=== PATIENT | male | born 1955 | race Caucasian/White ===

== ENCOUNTER 2017-01-13 11:31 | Emergency (ER) | payer MEDICARE, MEDICAID ==
[~2017-01-13] VITALS: Ht 188 cm; Wt 86.2 kg
--- OUTSIDE RECORDS SUMMARY | 2017-01-13 11:55 | External Medical Summary Rpt | CCD ---
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 PNEUMAT NEBULIZR DISPBL ADMN SET A7003 MED 4 MED 4 SM VOL 3 HOME INC HOME INC NONFILTR PNEUMAT NEBULIZR DISPBL ALBUTEROL J7620 MED 4 MED 4 TO 2.5 3 HOME INC HOME INC MG & IPRATROPI UM BROM TO 0.5 MG ALBUTEROL J7620 MED 4 MED 4 TO 2.5 3 HOME INC HOME INC MG & IPRATROPI UM BROM TO 0.5 MG ALBUTEROL J7620 MED 4 MED 4 TO 2.5 3 HOME INC HOME INC MG & IPRATROPI UM BROM TO 0.5 MG ALBUTEROL J7620 MED 4 MED 4 TO 2.5 3 HOME INC HOME INC MG & IPRATROPI UM BROM TO 0.5 MG NEBULIZER E0570 MED 4 MED 4 WITH 3 HOME INC HOME INC COMPRESSO R APPL 94845 EHN JANEE EHN JANEE MODALITY 3 1/> AREAS ELEC STIMJ UNATTENDE D APPL 62375 EHN JANEE EHN JANEE MODALITY 3 1/> 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 THERAPEUT 92209 EHN JANEE EHN JANEE IC PX 1/> 3 AREAS EACH 15 MIN EXERCISES CHIROPRAC 76131 EHN JANEE EHN JANEE TIC 3 MANIPULAT [facility] [place] SPINAL 3-4 REGIONS MANUAL 38954 EHN JANEE EHN JANEE THERAPY 3 TQS 1/> REGIONS EACH 15 MINUTES MANUAL 37240 EHN JANEE EHN JANEE THERAPY 3 TQS 1/> REGIONS EACH 15 MINUTES CHIROPRAC 59398 EHN JANEE EHN JANEE TIC 3 MANIPULAT [facility] SPINAL 3-4 REGIONS THERAPEUT 61064 EHN JANEE EHN JANEE IC PX 1/> 3 AREAS EACH 15 MIN EXERCISES APPL 80243 EHN JANEE EHN JANEE MODALITY 3 1/> 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 APPL 75246 EHN JANEE EHN JANEE MODALITY 3 1/> AREAS ELEC STIMJ UNATTENDE D APPL 35099 EHN JANEE EHN JANEE MODALITY 3 1/> AREAS ELEC STIMJ UNATTENDE D APPL 51354 EHN JANEE EHN JANEE MODALITY 3 1/> 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 CHIROPRAC 75162 EHN JANEE EHN JANEE TIC 3 MANIPULAT [facility] [place] SPINAL 3-4 REGIONS THERAPEUT 11462 EHN JANEE EHN JANEE IC PX 1/> 3 AREAS EACH 15 MIN EXERCISES MANUAL 73090 EHN JANEE EHN JANEE THERAPY 3 TQS 1/> REGIONS EACH 15 MINUTES MANUAL 93181 EHN JANEE EHN JANEE THERAPY 3 TQS 1/> REGIONS EACH 15 MINUTES CHIROPRAC 43088 EHN JANEE EHN JANEE TIC 3 MANIPULAT [facility] [place] SPINAL 3-4 REGIONS THERAPEUT 89166 EHN JANEE EHN JANEE IC PX 1/> 3 AREAS EACH 15 MIN EXERCISES APPL 40996 EHN JANEE EHN JANEE MODALITY 3 1/> AREAS ELEC STIMJ UNATTENDE D APPL 80010 EHN JANEE EHN JANEE MODALITY 3 1/> 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 APPL 96091 EHN JANEE EHN JANEE MODALITY 3 1/> 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 APPL 34964 EHN JANEE EHN JANEE MODALITY 3 1/> AREAS ELEC STIMJ UNATTENDE D MANUAL 71466 EHN JANEE EHN JANEE THERAPY 3 TQS 1/> REGIONS EACH 15 MINUTES THERAPEUT 27467 EHN JANEE EHN JANEE IC PX 1/> 3 AREAS EACH 15 MIN EXERCISES CHIROPRAC 47156 EHN JANEE EHN JANEE TIC 3 MANIPULAT [facility] SPINAL 3-4 REGIONS ALBUTEROL J7620 MED 4 MED 4 TO 2.5 3 HOME INC HOME INC MG & IPRATROPI UM BROM TO 0.5 MG NEBULIZER E0570 MED 4 MED 4 WITH 3 HOME INC HOME INC COMPRESSO R ALBUTEROL J7620 MED 4 MED 4 TO 2.5 2 HOME INC HOME INC MG & IPRATROPI UM BROM TO 0.5 MG MANUAL 65963 EHN JANEE EHN JANEE THERAPY 2 TQS 1/> REGIONS EACH 15 MINUTES THERAPEUT 73313 EHN JANEE EHN JANEE IC PX 1/> 2 AREAS EACH 15 MIN EXERCISES CHIROPRAC 16462 EHN JANEE EHN JANEE TIC 2 MANIPULAT [facility] [place] SPINAL 3-4 REGIONS APPL 09891 EHN JANEE EHN JANEE MODALITY 2 1/> AREAS ELEC STIMJ UNATTENDE D APPL 31177 EHN JANEE EHN JANEE MODALITY 2 1/> 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 ADMN SET A7005 MED 4 MED 4 W/SM VOL 2 HOME INC HOME INC NONFILTR NEBULIZR NON-DISPB L ALBUTEROL J7620 MED 4 MED 4 TO 2.5 2 HOME INC HOME INC MG & IPRATROPI UM BROM TO 0.5 MG NEBULIZER E0570 MED 4 MED 4 WITH 2 HOME INC HOME INC COMPRESSO R DRUG SCR G0434 LISS LISS NOT 2 CHR CHR CHROMATOG RAPHIC; ANY NUMBER PT ENC NEBULIZER E0570 MED 4 MED 4 WITH 2 HOME INC HOME INC COMPRESSO R DRUG SCR G0434 HOUSEWORT HOUSEWORT NOT 2 H ANG H ANG CHROMATOG RAPHIC; ANY NUMBER PT ENC O2 CONC 1 E1390 [facility] 2 INC. INC. 85%/>02 CONC AT [facility] FLW RATE NEBULIZER E0570 MED 4 MED 4 WITH 2 HOME INC HOME INC COMPRESSO R DRUG SCR G0434 HOUSEWORT HOUSEWORT NOT 2 H ANG H ANG CHROMATOG RAPHIC; ANY NUMBER PT ENC O2 CONC 1 E1390 [facility] 2 INC. INC. 85%/>02 CONC AT [facility] FLW RATE NEBULIZER E0570 MED 4 MED 4 WITH 2 HOME INC HOME INC COMPRESSO R DRUG SCR G0434 HOUSEWORT HOUSEWORT NOT 2 H ANG H ANG CHROMATOG RAPHIC; ANY NUMBER PT ENC DRUG SCR G0434 HOUSEWORT HOUSEWORT NOT 2 H ANG H ANG CHROMATOG RAPHIC; ANY NUMBER PT ENC O2 CONC 1 E1390 [facility] 2 INC. INC. 85%/>02 [facility]C AT [facility] FLW RATE NEBULIZER E0570 MED 4 MED 4 WITH 2 HOME INC HOME INC COMPRESSO R ALBUTEROL J7620 MED 4 MED 4 TO 2.5 2 HOME INC HOME INC MG & IPRATROPI UM BROM TO 0.5 MG ALBUTEROL J7620 MED 4 MED 4 TO 2.5 2 HOME INC HOME INC MG & IPRATROPI UM BROM TO 0.5 MG NEBULIZER E0570 MED 4 MED 4 WITH 2 HOME INC HOME INC COMPRESSO R DRUG SCR G0434 HOUSEWORT HOUSEWORT NOT 2 H ANG H ANG CHROMATOG RAPHIC; ANY NUMBER PT ENC ALBUTEROL J7620 MED 4 MED 4 TO 2.5 2 HOME INC HOME INC MG & IPRATROPI UM BROM TO 0.5 MG NEBULIZER E0570 MED 4 MED 4 WITH 2 HOME INC HOME INC COMPRESSO R DRUG SCR G0434 HOUSEWORT HOUSEWORT NOT 2 H ANG H ANG CHROMATOG RAPHIC; ANY NUMBER PT ENC APPL 31324 EHN JANEE EHN JANEE MODALITY 2 1/> AREAS ELEC STIMJ UNATTENDE D APPL 83498 EHN JANEE EHN JANEE MODALITY 2 1/> 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 THERAPEUT 39459 EHN JANEE EHN JANEE IC PX 1/> 2 AREAS EACH 15 MIN EXERCISES CHIROPRAC 44659 EHN JANEE EHN JANEE TIC 2 MANIPULAT [facility] SPINAL 3-4 REGIONS MANUAL 04074 EHN JANEE EHN JANEE THERAPY 2 TQS 1/> REGIONS EACH 15 MINUTES SPRING-PO A4258 HDIS HDIS WERED 2 DEVICE FOR LANCET EACH NORMAL A4256 HDIS HDIS LOW AND 2 HIGH CALIBRATO R SOLUTION/ CHIPS LANCETS A4259 HDIS HDIS PER BOX 2 OF 100 BLD GLU A4253 HDIS HDIS TEST/REAG 2 T STRIPS HOME BLD GLU MON-50 REPL PAUL[place] A4234 HDIS HDIS ALKALINE 2 J CELL ALKA BG MON OWN PT EA DRUG SCR G0434 HOUSEWORT HOUSEWORT NOT 2 H ANG H ANG CHROMATOG RAPHIC; ANY NUMBER PT ENC APPL 80061 EHN JANEE EHN JANEE MODALITY 2 1/> AREAS ELEC STIMJ UNATTENDE D APPL 87311 EHN JANEE EHN JANEE MODALITY 2 1/> 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 CHIROPRAC 35927 EHN JANEE EHN JANEE TIC 2 MANIPULAT [facility] SPINAL 3-4 REGIONS MANUAL 02920 EHN JANEE EHN JANEE THERAPY 2 TQS 1/> REGIONS EACH 15 MINUTES THERAPEUT 58095 EHN JANEE EHN JANEE IC PX 1/> 2 AREAS EACH 15 MIN EXERCISES NEBULIZER E0570 MED 4 MED 4 WITH 2 HOME INC HOME INC COMPRESSO R DRUG SCR G0434 HOUSEWORT HOUSEWORT NOT 2 H ANG H ANG CHROMATOG RAPHIC; ANY NUMBER PT ENC NEBULIZER E0570 MED 4 MED 4 WITH 2 HOME INC HOME INC COMPRESSO R DRUG SCR G0434 HOUSEWORT HOUSEWORT NOT 2 H ANG H ANG CHROMATOG RAPHIC; ANY NUMBER PT ENC RADEX [address] SPINE 2 DAVID DAVID LUMBOSACR AL 2/3 MEDICALCE MEDICALCE VIEWS NTER NTER NORMAL A4256 NATIONS NATIONS LOW AND 2 [facility] HIGH CALIBRATO R SOLUTION/ CHIPS BLD GLU A4253 NATIONS NATIONS TEST/REAG 2 HEALTH HEALTH T STRIPS HOME BLD GLU MON-50 NEBULIZER E0570 MED 4 MED 4 WITH 2 HOME INC HOME INC COMPRESSO R BLD GLU A4253 HDIS HDIS TEST/REAG 2 T STRIPS HOME BLD GLU MON-50 LANCETS A4259 HDIS HDIS PER BOX 2 OF 100 NORMAL A4256 HDIS HDIS LOW AND 2 HIGH CALIBRATO R SOLUTION/ CHIPS NEBULIZER E0570 MED 4 MED 4 WITH 2 HOME INC HOME INC COMPRESSO R ADMN SET A7005 MED 4 MED 4 W/SM VOL 2 HOME INC HOME INC NONFILTR NEBULIZR NON-DISPB L ALBUTEROL J7620 MED 4 MED 4 TO 2.5 2 HOME INC HOME INC MG & IPRATROP[place] [address] [place] [address] RADIOLOGY RADIOLOGY HEAD/BRAI 2 N W/O ASSOCIATE ASSOCIATE CONTRAST S PSC S PSC MATERIAL RADIOLOGI 61095 RADIOLOGY [place] C EXAM 2 DIANELYS CHEST 2 ASSOCIATE VIEWS S PSC FRONTAL&L ATERAL ECG 07068 DANAE FINK ROUTINE 2 RAL RAL ECG W/LEAST 12 LDS I&R ONLY NORMAL A4256 NATIONS NATIONS LOW AND 1 HEALTH HEALTH HIGH CALIBRATO R SOLUTION/ CHIPS LANCETS A4259 NATIONS NATIONS PER BOX 1 HEALTH HEALTH OF 100 BLD GLU A4253 NATIONS NATIONS TEST/REAG 1 HEALTH HEALTH T STRIPS HOME BLD GLU MON-50 SPRING-PO A4258 NATIONS NATIONS WERED 1 HEALTH HEALTH DEVICE FOR LANCET EACH RADIOLOGI 68615 RADIOLOGY [place] C EXAM 1 BRA CHEST 2 ASSOCIATE VIEWS S PSC FRONTAL&L ATERAL ECG 40846 DIAGNOSTI JEFFERSONANNOLD ROUTINE 1 C PEG ECG CARDIOLOG W/LEAST ISTS INC 12 LDS I&R ONLY RHYTHM 81462 [facility] ECG 1-3 1 CARE ROSIBEL LEADS PHYS INTERPRET [facility]THER[facility] ATION & REPRT ON ECG [address] ROUTINE 1 DAVID DAVID ECG FT FT W/LEAST BLANCA BLANCA 12 LDS TRCG ONLY W/O I&[place] [address] LIPASE 1 DAVID PETIT MEDICALMARYLIN NTER NTER URNLS DIP [address] 1 DAVIDSUSAN HERNANDEZ STICK/TAB LET RGNT MEDICALCE MEDICALCE NON-AUTO NTER NTER W/O MICRSCP GASES 26595 ST BLOOD PH 1 DAVID HERNANDEZ DIRECT GABRIEL XCPT MEDICALCE MEDICAL[place] [address] INFUSION 1 DAVIDVINCENZO HERNANDEZ HYDRATION INITIAL MEDICALCE MEDICALCE 31 MIN-1 NTER NTER HOUR COLLECTIO [address] N VENOUS 1 DAVID HERNANDEZ BLOOD VENIPUNCT MEDICALCE MEDICALCE URE NTER NTER AMB A0427 [facility] SERVICE 1 FIRE FIRE ALS DEPT DEPT EMERGENCY TRANSPORT LEVEL [address] COUNT 1 DAVID HERNANDEZ COMPLETE AUTO&AUTO MEDICALCE MEDICALCE DIFRNTL NTER NTER WBC GROUND A0425 [facility] MILEAGE 1 FIRE FIRE PER DEPT DEPT STATUTE MILE GLUC BLD 07238 ST GLUC MNTR 1 DAVID HERNANDEZ DEV CLEARED MEDICALCE MEDICALCE FDA SPEC NTER NTER HOME USE COMPREHEN [address] SIVE 1 DAVID HERNANDEZ METABOLIC PANEL MEDICALCE MEDICALCE NTER NTER RADIOLOGI 56085 RADIOLOGY ROEBKER C EXAM 1 JAM CHEST 2 ASSOCIATE VIEWS S PSC FRONTAL&L ATERAL RADEX [address] FOOT 1 DAVID HERNANDEZ COMPLETE MINIMUM 3 MEDICALCE MEDICALCE VIEWS NTER NTER HEMOGLOBI 98907 [facility] N 1 [place] GLYCOSYLA FAMILY DANNA [address] RADIOLOGI [address]247 RADIOLOGY DOER[place] C EXAM 1 KIR CHEST 2 ASSOCIATE VIEWS S PSC FRONTAL&L ATERAL GROUND A0425 [facility] MILEAGE 1 FIRE FIRE PER DEPT DEPT STATUTE MILE AMBULANCE A0429 [facility] SERVICE 1 FIRE FIRE BLS DEPT DEPT EMERGENCY TRANSPORT RADEX HIP [address] 1 DAVID HERNANDEZ UNILATERA L MEDICALCE MEDICALCE COMPLETE NTER NTER MINIMUM [address] C EXAM 1 DAVID GOMEZZABETH CHEST 2 VIEWS MEDICALCE MEDICALCE FRONTAL&L NTER NTER ATERAL RADEX 66044 RADIOLOGY BRANDSER SPINE 1 PATTI LUMBOSACR ASSOCIATE AL 2/3 S PSC VIEWS GLUC BLD [address] GLUC MNTR 1 DAVID DAVID USMAN RIVAS CLEARED FDA SPEC HOME USE WHEELCHAI E0990 THE THE R ACCESS 1 SCOOTER SCOOTER ELEV LEG STORE STORE REST CMPL ASSMBL EA PWR E2365 THE THE WHLCHAIR 1 SCOOTER SCOOTER ACSS U-1 STORE STORE SEALED LEAD ACID BATTRY EA PWR WC K0823 THE THE GRP 2 STD 1 SCOOTER SCOOTER CAPTAINS STORE STORE CHAIR PT TO &=[address] METABOLIC 0 DAVID DAVID PANEL CALCIUM MEDICALCE MEDICALCE TOTAL NTER NTER [address] HYDROXY 0 DAVID DAVID INCLUDES FRACTIONS MEDICALCE MEDICALCE IF NTER NTER PERFORMED LIPID [address] PANEL 0 DAVID DAVID MEDICALCE MEDICALCE NTER NTER HEPATIC [address] FUNCTION 0 DAVID DAVID PANEL MEDICALCE MEDICALCE NTER NTER HEMOGLOBI [address] N 0 DAVID DAVID GLYCOSYLA DANNA A1C MEDICALCE MEDICALCE NTER NTER RADEX [address] ELBOW 0 DAVID DAVID COMPLETE MINIMUM 3 MEDICALCE MEDICALCE VIEWS NTER NTER COMPREHEN 10197 [facility] SIVE 0 [employer] METABOLIC PANEL LIPOPROTE 68747 [facility] OF IN DIRECT 0 [employer] MEASUREME NT LDL CHOLESTER OL BLOOD 75966 [facility] COUNT 0 [employer] [place] INC COMPLETE AUTO&AUTO DIFRNTL WBC HEMOGLOBI 09416 [facility] N 0 [place] GLYCOSYLA FAMILY DANNA A1[facility] C[place] LIPID 45265 [facility] OF PANEL 0 [place] [employer] [place] INC BLD GLU A4253 SIMÓN Gomez. TEST/REAG 0 [employer] INC. [employer] INC. T STRIPS PLASTIC BOAT PATCHER RUWE PLASTIC BOAT PATCHER RUWE HOME BLD F F GLU MON-50 LANCETS A4259 SIMÓN Gomez PER BOX 0 RUWE INC [employer] INC OF 100 PLASTIC BOAT PATCHER RUWE PLASTIC BOAT PATCHER RUWE FAM FAM RADEX 78330 RADIOLOGY VERA FOOT 0 [place]AVEN COMPLETE ASSOCIATE MINIMUM 3 S PSC VIEWS ECG [address] ROUTINE 0 DAVID DAVID ECG ROB ROB W/LEAST 12 LDS TRCG ONLY W/O I&R RADEX HIP [address] 0 DAVID DAVID UNILATERA ROB ROB L COMPLETE MINIMUM 2 VIEWS RHYTHM 41573 EMERGENCY HERFEL ECG 1-3 0 CARE FRANCIA LEADS PHYS INTERPRET [facility] ATION & REPRT ON PROTHROMB [address] IN TIME 0 [place] [address] INFUSION 0 DAVID DAVID HYDRATION ROB ROB INITIAL 31 MIN-[address] N VENOUS 0 DAVID DAVID [place] [address] INFUSION 0 DAVID DAVID HYDRATION ROB ROB EACH ADDITIONA L HOUR BASIC [address] METABOLIC 0 DAVID DAVID PANEL ROB ROB CALCIUM TOTAL BLOOD [address] TYPING 0 DAVID DAVID SEROLOGIC ROB ROB RH (D) BLOOD [address] COUNT 0 DAVID DAVID COMPLETE ROB ROB AUTO&[place] [address] TROPONIN 0 DAVID DAVID QUANTITAT ROB ROB [facility] RAD[facility] [address] SPINE 0 DAVID DAVID [facility] 4 OR [address] B[address] TYPING 0 DAVID DAVID SEROLOGIC [facility] [address] SHOULDER 0 DAVID DAVID COMPLETE [facility] MINIMUM 2 VIEWS BLD GLU A4253 SIMÓN Gomez. TEST/REAG 0 [employer] INC. [employer] INC. T STRIPS PLASTIC BOAT PATCHER RUWE PLASTIC BOAT PATCHER RUWE HOME BLD F F GLU MON-[address] SHOULDER 0 DAVID DAIVD COMPLETE MINIMUM 2 MEDICALCE MEDICALCE VIEWS NTER NTER RADEX [address] ELBOW 0 DAVID DAVID COMPLETE MINIMUM 3 MEDICALCE MEDICALCE VIEWS NTER NTER SPRING-PO A4258 LIBERTY LIBERTY WERED 0 MEDICAL LEAD SOFTWARE QA ENGINEER SUPPLY SUPPLY FOR LANCET EACH LANCETS A4259 SIMÓN Gomez PER BOX 0 RUWE INC [employer]WE INC OF 100 PLASTIC BOAT PATCHER RUWE PLASTIC BOAT PATCHER RUWE FAM FAM NORMAL A4256 LIBERTY LIBERTY LOW AND 0 MEDICAL MEDICAL HIGH SUPPLY SUPPLY CALIBRATO R SOLUTION/ CHIPS BLD GLU A4253 SIMÓN Gomez TEST/REAG 0 RUWE INC RUWE INC T STRIPS PLASTIC BOAT PATCHER RUWE PLASTIC BOAT PATCHER RUWE HOME BLD FAM FAM GLU MON-50 SYRINGE A4206 SIMÓN Gomez. WITH 0 [employer] INC. [employer] INC. NEEDLE PLASTIC BOAT PATCHER RUWE PLASTIC BOAT PATCHER RUWE STERILE 1 F F CC OR LESS EACH RADIOLOGI 03966 RADIOLOGY VERA C 0 HAVEN EXAMINATI ASSOCIATE ON PELVIS S PSC 1/2 VIEWS RADEX HIP 55978 RADIOLOGY VERA 0 HAVEN UNILATERA ASSOCIATE L S PSC COMPLETE MINIMUM [address] V[address] 6/>YRS 0 DAVIDVINCENZO RIVASBETH SLEEP W/CPAP MEDICALCE MEDICALCE 4/> [place] [address] [facility] THYROID 0 [employer] [facility] STIMULATI NG HORMONE TSH COMPREHEN 59746 [facility] SIVE 0 [facility] METABOLIC PANEL SYRINGE A4206 SIMÓN Ansari WITH 0 [employer] INC. [employer] INC. NEEDLE PLASTIC BOAT PATCHER RUWE PLASTIC BOAT PATCHER RUWE STERILE 1 FAMILY FAMILY CC OR PHARMACY PHARMACY LESS EACH LIPID 14724 [facility] PANEL 0 [facility] LIPOPROTE 19247 [facility] OF IN DIRECT 0 [facility] MEASUREME NT LDL CHOLESTER OL BLOOD 81780 [facility] COUNT 0 [facility] COMPLETE AUTO&AUTO DIFRNTL WBC HEMOGLOBI 98630 [facility] OF N 0 [facility] GLYCOSYLA DANNA A1C BLOOD [address] COUNT 0 DAVID DAVID COMPLETE AUTO&AUTO MEDICAL MEDICALCE DIFRNTL NTER NTER WBC COLLECTIO [address] N VENOUS 0 DAVID DAVID BLOOD VENIPUNCT [facility] MEDICAL URE NTER NTER URNLS DIP [address] 0 DAVID DAVID STICK/TAB LET RGNT MEDICALCE MEDICALCE NON-AUTO NTER NTER W/O MICRSCP COMPREHEN [address] SIVE 0 DAVID DAVID METABOLIC PANEL [place] [address] LIPASE 0 DAVID DAV[place] [address] RADIOLOGY KERMAN, ABDOMEN 0 RADHA H W/CONTRAS ASSOCIATE T S PSC MATERIAL CT PELVIS 38410 RADIOLOGY KERMAN, 0 RDAHA H W/CONTRAS ASSOCIATE T S PSC MATERIAL OPHTHALMO 01357 CHRISTINA VASQUEZ SCPY 0 LOIDA Buckley EXTENDED RETINAL DRAWING I&R 1ST DETERMINA 20205 CHRISTINA VASQUEZ TIKARISSA 0 LOIDA Buckley REFRACTIV E STATE GLUCOSE 72330 [facility] RAN, QUANTITAT 0 POINT RUDY M [facility] BLOOD FAMILY XCPT CARE, REAGENT INC. STRIP RADEX 54107 RADIOLOGY MILLS, SPINE 0 SALLY W LUMBOSACR ASSOCIATE AL 2/3 S PSC VIEWS RADEX HIP 68033 RADIOLOGY LUBBERS, 0 DEEPA UNILATERA ASSOCIATE L S PSC COMPLETE MINIMUM 2 VIEWS RADEX 07145 RADIOLOGY EISEMAN, HIPS 0 SUZY R BILATERAL ASSOCIATE 2 VIEWS S PSC ANTEROPOS T PELVIS RHYTHM 03658 EMERGENCY EMERY, ECG 1-3 0 CARE MEGHA L LEADS PHYS INTERPRET [place] AT[place] & [place] REPRT [place] ECG 28170 DIAGNOSMICHELLE DOBSON ROUTINE 0 C , TAZ J ECG CARDIOLOG W/LEAST ISTS INC 12 LDS I&R ONLY GLUC BLD [address] GLUC MNTR 0 DAVID DAVID DEV CLEARED MEDICALCE MEDICALCE FDA SPEC NTER NTER HOME USE THERAPEUT [address] IC 0 DAVID DAVID PROPHYLAC TIC/DX MEDICALCE MEDICALCE INJECTION NTER NTER SUBQ/IM PUNCTURE [address] ASPIRATIO 0 DAVID DAVID N ABSCESS HEMATOMA MEDICALCE MEDICALCE NTER NTER BULLA/CYS T URNLS DIP [address] 0 DAVID DAVID STICK/TAB LET RGNT MEDICALCE MEDICALCE NON-AUTO NTER NTER W/O MICRSCP INCISION [address] & 0 DAVID DAVID DRAINAGE ABSCESS MEDICALCE MEDICALCE SIMPLE/SI NTER NTER NGLE RADEX [address] SHOULDER 9 DAVID DAVID COMPLETE MINIMUM 2 MEDICALCE MEDICALCE VIEWS NTER NTER RADEX [address] WRIST 9 DAVID DAVID COMPLETE MINIMUM 3 MEDICALCE MEDICALCE VIEWS NTER NTER RADEX [address] ELBOW 9 DAVID DAVID COMPLETE MINIMUM 3 MEDICALCE MEDICALCE VIEWS NTER NTER RADEX 37613 [facility] RIBS 9 [facility] L 2 VIEWS RADEX HIP 99182 [facility] 9 [facility] L COMPLETE [place] [address] [place] [address] [facility] ABDOMEN 9 [facility] W/[facility] T MATERIAL [address] PELVIS [address] W/[facility] T MATERIAL BASIC 29526 [facility] METABOLIC [address] [place] [address] PANEL [facility] CALCIUM TOTAL COLLECTIO 07537 [facility] N VENOUS 9 [facility] BLOOD [facility] VENIPUNCT URE RADEX 99180 [facility] SHOULDER [address] [place] [address] COMPLETE [facility] MINIMUM 2 VIEWS RADIOLOGI 96564 [facility] C EXAM [address] [place] [address] CHEST 2 [facility] VIEWS FRONTAL&L ATERAL POLYSOM 46106 ST 6/>YRS 9 DAVID DAVID SLEEP W/CPAP MEDICALCE MEDICALCE 4/> ADDL NTER NTER KELLEE ATTND POLYSOM 25032 [facility] 6/>YRS 9 DAVID DAVID SLEEP W/CPAP MEDICALCE MEDICALCE 4/> ADDL NTER NTER KELLEE ATTND POLYSOM 75643 [facility] 6/>YRS 9 DAVID DAVID SLEEP 4/> ADDL MEDICALCE [place] [address] [facility] MAXILLOFA 9 DAVID DAVID CIAL W/O CONTRAST MEDICALCE MEDICALCE MATERIAL NTER NTER DUP-SCAN 04591 [facility]TR [facility] MEDICALCE BILATERAL NTER NTER STUDY RADIOLOGI 87603 [facility] C EXAM 8 [facility] CHEST 2 VIEWS MEDICALCE MEDICALCE FRONTAL&L NTER NTER ATERAL Encounters Encounter Start End Date Code Location Performer Type Date HOSPITAL ST - 7 7 DAV[facility] OUTPATIEN T HEALTHCAR E EDGE OFFICE 32677 E[facility] JANEE E[facility] JANEE OUTPATIEN 5 5 T VISIT [address] NALLELY OUTPATIEN 5 5 DAVID TRO T VISIT [address] ACCESS 4 4 [facility] EMERGENCY [address] 4 4 DAVID FIELDS [place] T VISIT MODERATE SEVERITY HOSPITAL ST - OTHER 4 4 DAVID MED CTR PLASTIC BOAT PATCHER ST OFFICE 90652 [facility] OUTPATIEN 4 4 [facility] T VISIT CENTER [address] - 3 3 [facility] 30562 [facility]. 3 3 DAVID [facility] T VISIT MODERATE SEVERITY EMERGENCY 83139 [facility] DEPT 3 3 DAVID VISIT MED CTR HIGH SEVERITY& THREAT [facility]UNCJ EMERGENCY 74066 [facility]VERITY [facility] ST - 3 3 [facility] OUTPATIEN MED CTR T PLASTIC BOAT PATCHER ST OFFICE 95147 EHN JANEE EHN JANEE OUTPATIEN 3 3 T VISIT 15 MINUTES OFFICE 40628 NAL[facility]LY NALLELY OUTPATIEN 3 3 TRO TRO T VISIT 25 MINUTES OFFICE 00657 [facility] JANEE [facility] JANEE OUTPATIEN 2 2 T VISIT 15 MINUTES OFFICE 73319 [facility] 2 2 H ANG H ANG T VISIT 25 MINUTES OFFICE 27941 [facility] OUT[facility] 2 2 H ANG H ANG T VISIT 25 MINUTES OFFICE 67444 [facility] OUTPATIEN 2 2 H ANG H ANG T VISIT 10 MINUTES OFFICE 70416 [facility] OUT[facility] 2 2 H ANG H ANG T VISIT 10 MINUTES OFFICE 81830 [facility] 2 2 H ANG H ANG T VISIT 25 MINUTES OFFICE 99384 [facility] 2 2 H ANG H ANG T VISIT 10 MINUTES OFFICE 58021 [facility] 2 2 H ANG H ANG T VISIT 25 MINUTES OFFICE 95690 [facility] 2 2 H ANG H ANG T VISIT 25 MINUTES OFFICE 76880 [facility] 2 2 H ANG H ANG T VISIT [address] - 2 2 DAVID OUTPATIEN T MEDICALCE NTER EMERGENCY 51128 [facility] DEPT 2 2 DAVID GRE VISIT [facility] SEVER[facility]& THREAT FUN EMERGENCY 16054 EMERGENCY [facility] 2 2 CARE ALTHEA DEPARTMEN PHYS T VISIT [facility] HIGH/URGE NT SEVERITY [facility]OSPITAL ST - 1 1 DAVID OUTPATIEN FT T [facility] 209[address] ST 1 1 DAVID DEPARTMEN FT T VISIT TIMNATH MODERATE SEVERITY EMERGENCY 04795 ST DEPT 1 1 DAVID VISIT HIGH MEDICALCE SEVERITY& [facility] OUTPATIEN T MEDICALCE NTER EMERGENCY 86721 EMERGENCY GAUTRAUD 1 1 CARE MATTHIEU DEPARTMEN PHYS T VISIT [facility] HIGH/URGE NT SEVERITY HOSPITAL ST - 1 1 DAVID OUTPATIEN T MEDICALCE NTER EMERGENCY 02028 ST 1 1 DAVID DEPARTMEN T VISIT MEDICALCE MODERATE NTER SEVERITY HOSPITAL ST - 1 1 DAVID OUTPATIEN T MEDICALCE NTER EMERGENCY [address] 1 1 DAVID DEPARTMEN T VISIT MEDICALCE LOW/MODER NTER SEVERITY OFFICE 50964 [facility] 1 [address] [place] T VISIT FAMILY 25 CARE, IN MINUTES HOSPITAL ST - 1 1 DAVID OUTPATIEN T MEDICALCE NTER EMERGENCY 56527 ST 1 1 DAVID DEPARTMEN T VISIT MEDICALCE MODERATE NTER SEVERITY EMERGENCY 59649 [facility] 1 1 DAV[facility] [facility] T VISIT MODERATE SEVERITY EMERGENCY 75206 [facility] 1 1 DAVID KASI DEPARTMEN MED CTR T VISIT MODERATE SEVERITY HOSPITAL ST - 1 1 DAVID OUTPATIEN T MEDICALCE NTER EMERGENCY 80774 ST 1 1 DAVID DEPARTMEN T VISIT MEDICALCE HIGH/URGE NTER NT SEVERITY HOSPITAL ST - 1 1 DAVID OUTPATIEN T MEDICALCE NTER EMERGENCY 61771 ST 1 1 DAVID DEPARTMEN T VISIT MEDICALCE MODERATE NTER SEVERITY EMERGENCY 35175 ST. 1 1 DAVID DEPARTMEN ROB T VISIT MODERATE SEVERITY EMERGENCY 49127 EMERGENCY LE HIE 1 1 CARE DEPARTMEN PHYS T V[facility]IT [facility] - 1 1 DAVID OUTPATIEN ROB T OFFICE 28939 [facility] OUTPATIEN 1 1 DAVID TRO T VISIT 25 PHYSICIAN MIN[address]ES S [facility] - OTHER 0 0 DAVID MEDICALCE NTER EMERGENCY 16050 ST 0 0 DAVID DEPARTMEN T VISIT MEDICALCE MODERATE NTER SEVERITY HOSPITAL ST - 0 0 [facility] OUTPATIEN T MEDICALCE NTER OFFICE 01045 [facility] 0 0 [place] T VISIT FAMILY 25 CARE, IN MINUTES EMERGENCY 65839 EMERGENCY BELL 0 0 CARE SARMAD DEPARTMEN PHYS T VISIT [facility]/URGE NT SEVERITY EMERGENCY 89752 EMERGENCY HERFEL 0 0 CARE DELL DEPARTMEN PHYS T VISIT [facility] H[facility]/URGE NT SEVERITY EMERGENCY 81930 EMERGENCY [facility] DEPT 0 0 CARE FRANCIA VISIT PHYS HIGH [facility] SEVERITY& THREAT [facility] HOSPITAL ST. - 0 0 DAVID OUTPATIEN ROB T EMERGENCY 34538 ST. 0 0 DAVID DEPARTMEN ROB T VISIT HIGH/URGE NT SEVERITY EMERGENCY 10833 ST JEN 0 0 DAVID ANT DEPARTMEN MED CTR T VISIT MODERATE SEVERITY EMERGENCY 28012 EMERGENCY RICHARDSO 0 0 CARE N THO DEPARTMEN PHYS T VISIT [facility]/URGE NT SEVERITY EMERGENCY 15067 ST 0 0 DAVID DEPARTMEN T VISIT MEDICALCE MODERATE NTER SEVERITY [facility]OSPITAL ST - 0 0 DAVID OUTPATIEN T MEDICALCE NTER EMERGENCY 73207 ST 0 0 DAVID DEPARTMEN T VISIT [facility]ICALCE HIGH/URGE NTER NT SEVERITY HOSPITAL ST - 0 0 DAV[facility] OUTPATIEN T MEDICALCE NTER EMERGENCY 80157 ST H[place] 0 0 DAVID [place] DEPARTMEN MED CTR T VISIT MODERATE SEVERITY OFFICE 64779 [facility] 0 0 [place] T VISIT FAMILY 25 CARE, IN MINUTES HOSPITAL ST - 0 0 DAVID OUTPATIEN T MEDICALCE NTER EMERGENCY 32818 ST 0 0 DAVID DEPARTMEN T VISIT MEDICALCE HIGH/URGE NTER NT SEVERITY [facility]PITAL ST - 0 0 DAVID OUTPATIEN T MEDICALCE NTER OFFICE 83360 CHRISTINA VASQUEZ, OUTPATIEN 0 0 LOIDA Buckley T NEW 45 MINUTES OFFICE 48194 [facility] THOMAS OUTPATIEN 0 0 [place] M T VISIT FAMILY 25 CARE, MINUTES INC. EMERGENCY 24307 EMERGENCY SHER 0 0 CARE ESTER DEPARTMEN PHYS T VISIT [facility] HIGH/URGE NT SEVERITY EMERGENCY 93703 EMERGENCY EMERY, DEPT 0 0 CARE MEGHA L VISIT PHYS HIGH [facility] SE[facility] [place] [facility] OUTPATIEN T MEDICALCE NTER EMERGENCY 20971 ST 0 [facility] MODERATE NTER SEVERITY EMERGENCY 72350 ST 0 [facility] MODERATE NTER SEVERITY [facility] ST - 0 0 DAV[facility] OUTPATIEN T MEDICALCE NTER EMERGENCY 60198 [facility]/URGE NTER NT SEVERITY [facility] ST - 9 9 DAVID OUTPATIEN T MEDICALCE [facility] [address] T EMERGENCY [address] T VISIT HIGH/URGE NT SEVERITY [facility]PITAL ST 9 9 DAVID OUTPATIEN T MEDICALCE [facility] ST - 9 9 DAVID OUTPATIEN T MEDICALCE NT OFFICE 35715 [facility] 9 9 DAVID T VISIT 5 MINUTES [facility]ICALCE [facility] T VISIT 5 MINUTES MEDICALCE [facility] ST - 9 9 [facility] EMERGENCY [address]9213 ST 9 9 DAVID [facility] T VISIT MEDICALCE MODERATE NTER SEVERITY [facility] ST - 9 9 DAVID OUTPATIEN T MEDICALCE [facility] ST - 9 9 DAVID OUTPATIEN T MEDICALCE NT EMERGENCY 94758 [facility] MOD[facility]ATE NTER SEVERITY [facility] ST - 9 9 DAVID OUTPATIEN T MEDICALCE [facility] EMERGENCY 89351 [facility] MOD[facility]ATE NTER SEVERITY [facility] ST - 8 8 DAVID OUTPATIEN T MEDICALCE [facility]
--- OUTSIDE RECORDS SUMMARY | 2017-01-13 11:55 | External Medical Summary Rpt | CCD ---
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 MEDICALCE MEDICALCE 31 MIN-1 NTER NTER HOUR COLLECTIO [address] ST [address] N VENOUS 1 DAVID HERNANDEZ BLOOD VENIPUNCT MEDICALCE MEDICALCE URE NTER NTER AMB A0427 [facility] SERVICE 1 FIRE FIRE ALS DEPT DEPT EMERGENCY TRANSPORT LEVEL [address] COUNT 1 DAVID HERNANDEZ COMPLETE AUTO&AUTO MEDICALCE MEDICALCE DIFRNTL NTER NTER WBC GROUND A0425 [facility] MILEAGE 1 FIRE FIRE PER DEPT DEPT STATUTE MILE GLUC BLD 87325 ST GLUC MNTR 1 DAVID HERNANDEZ DEV CLEARED MEDICALCE MEDICALCE FDA SPEC NTER NTER HOME USE COMPREHEN [address] SIVE 1 DAVID HERNANDEZ METABOLIC PANEL MEDICALCE MEDICALCE NTER NTER RADIOLOGI 45113 RADIOLOGY ROEBKER C EXAM 1 JAM CHEST 2 ASSOCIATE VIEWS S PSC FRONTAL&L ATERAL RADEX [address] FOOT 1 DAVID HERNANDEZ COMPLETE MINIMUM 3 MEDICALCE MEDICALCE VIEWS NTER NTER HEMOGLOBI 57464 [facility] 1 [place] GLYCOSYLA FAMILY DANNA [address], [place] RADIOLOGI [address] RADIOLOGY DOERGER C EXAM 1 KIR CHEST 2 ASSOCIATE VIEWS S PSC FRONTAL&L ATERAL GROUND A0425 [facility] MILEAGE 1 FIRE FIRE PER DEPT DEPT STATUTE MILE AMBULANCE A0429 [facility] SERVICE 1 FIRE FIRE BLS DEPT DEPT EMERGENCY TRANSPORT RADEX HIP [address] 1 DAVID HERNANDEZ UNILATERA L MEDICALCE MEDICALCE COMPLETE NTER NTER MINIMUM [address] C EXAM 1 DAVID GOMEZZABETH CHEST 2 VIEWS MEDICALCE MEDICALCE FRONTAL&L NTER NTER ATERAL RADEX 03306 RADIOLOGY BRANDSER SPINE 1 PATTI LUMBOSACR ASSOCIATE AL 2/3 S PSC VIEWS GLUC BLD [address] GLUC MNTR 1 DAVID DAVID [...] STORE CHAIR PT TO &=[address] METABOLIC 0 DAVID DAVID PANEL CALCIUM MEDICALCE MEDICALCE TOTAL NTER NTER [address] HYDROXY 0 DAVID DAVID INCLUDES FRACTIONS MEDICALCE MEDICALCE IF NTER NTER PERFORMED LIPID [address] PANEL 0 DAIVD DAVID MEDICALCE MEDICALCE NTER NTER HEPATIC [address] FUNCTION 0 DAVID DAVID PANEL MEDICALCE MEDICALCE NTER NTER HEMOGLOBI [address] N 0 DAVID DAVID GLYCOSYLA DANNA A1C MEDICALCE MEDICALCE NTER NTER RADEX [address] ELBOW 0 DAVID DAVID COMPLETE MINIMUM 3 MEDICALCE MEDICALCE VIEWS NTER NTER COMPREHEN 20498 [facility] SIVE 0 Comic Reply INC Comic Reply INC METABOLIC PANEL LIPOPROTE 08053 [facility] IN DIRECT 0 Comic Reply INC Comic Reply INC MEASUREME NT LDL CHOLESTER OL BLOOD 99559 [facility] COUNT 0 Comic Reply INC [place] INC COMPLETE AUTO&AUTO DIFRNTL WBC HEMOGLOBI 86321 [facility] N 0 [place] GLYCOSYLA FAMILY DANNA A1C CARE[place] LIPID 02072 [facility] PANEL 0 [place] INC OHIO INC BLD GLU A4253 SIMÓN Gomez. TEST/REAG 0 RUWE INC. RUWE INC. T STRIPS SMOKING TOBACCO PACKER HAND RUWE SMOKING TOBACCO PACKER HAND RUWE HOME BLD F F GLU MON-50 LANCETS A4259 SIMÓN Gomez PER BOX 0 RUWE INC RUWE INC OF 100 SMOKING TOBACCO PACKER HAND RUWE SMOKING TOBACCO PACKER HAND RUWE FAM FAM RADEX 23525 RADIOLOGY VERA FOOT 0 HAVEN COMPLETE ASSOCIATE MINIMUM 3 S PSC VIEWS ECG [address] ROUTINE 0 DAVID DAVID ECG ROB ROB W/LEAST 12 LDS TRCG ONLY W/O I&R RADEX HIP [address] 0 DAVID DAVID UNILATERA ROB ROB L COMPLETE MINIMUM 2 VIEWS RHYTHM 90529 EMERGENCY HERFEL ECG 1-3 0 CARE FRANCIA LEADS PHYS INTERPRET [facility] & REPRT ON PROTHROMB [address] IN TIME 0 [place] [address] INFUSION 0 DAVID DAVID HYDRATION ROB ROB INITIAL 31 MIN-[address] N VENOUS 0 DAVID DAVID [place] [address] INFUSION 0 DAVID DAVID HYDRATION ROB ROB EACH ADDITIONA L HOUR BASIC [address] METABOLIC 0 DAVID DAVID PANEL ROB ROB CALCIUM TOTAL BLOOD 6[address] TYPING 0 DAVID ADVID SEROLOGIC ROB ROB RH (D) BLOOD [address] COUNT 0 DAVID DAVID COMPLETE ROB ROB AUTO&[place] [address] TROPONIN 0 DAVID DAVID QUANTITAT ROB ROB [facility] RAD[facility] [address] SPINE 0 DAVID DAVID CERVICAL [facility] 4 OR [address] B[address] TYPING 0 DAVID [facility] [address] SHOULDER 0 DAVID DAVID COMPLETE [facility] MINIMUM 2 VIEWS BLD GLU A4253 SIMÓN Gomez. TEST/REAG 0 RUWE INC. RUWE INC. T STRIPS SMOKING TOBACCO PACKER HAND RUWE SMOKING TOBACCO PACKER HAND RUWE HOME BLD F F GLU MON-[address] SHOULDER 0 DAVID DAVID COMPLETE MINIMUM 2 MEDICALCE MEDICALCE VIEWS NTER NTER RADEX [address] ELBOW 0 DAVID DAVID COMPLETE MINIMUM 3 MEDICALCE MEDICALCE VIEWS NTER NTER SPRING-PO A4258 LIBERTY LIBERTY WERED 0 MEDICAL HEEL LAYER SUPPLY SUPPLY FOR LANCET EACH LANCETS A4259 SIMÓN Gomez PER BOX 0 RUWE INC RUWE INC OF 100 SMOKING TOBACCO PACKER HAND RUWE SMOKING TOBACCO PACKER HAND RUWE FAM FAM NORMAL A4256 LIBERTY LIBERTY LOW AND 0 MEDICAL MEDICAL HIGH SUPPLY SUPPLY CALIBRATO R SOLUTION/ CHIPS BLD GLU A4253 SIMÓN Gomez TEST/REAG 0 RUWE INC RUWE INC T STRIPS SMOKING TOBACCO PACKER HAND RUWE SMOKING TOBACCO PACKER HAND RUWE HOME BLD FAM FAM GLU MON-50 SYRINGE A4206 SIMÓN Gomez. WITH 0 RUWE INC. RUWE INC. NEEDLE SMOKING TOBACCO PACKER HAND RUWE SMOKING TOBACCO PACKER HAND RUWE STERILE 1 F F CC OR LESS EACH RADIOLOGI 92595 RADIOLOGY VERA C 0 HAVEN EXAMINATI ASSOCIATE ON PELVIS S PSC 1/2 VIEWS RADEX HIP 53028 RADIOLOGY VERA 0 HAVEN UNILATERA ASSOCIATE L S PSC COMPLETE MINIMUM [address] 6/>YRS 0 DAVIDVINCENZO RIVASBETH SLEEP W/CPAP MEDICALCE MEDICALCE 4/> [place] [address] [facility] THYROID 0 [facility] STIMULATI NG HORMONE TSH COMPREHEN 22372 [facility] SIVE 0 [facility] METABOLIC PANEL SYRINGE A4206 SIMÓN Ansari WITH 0 RUWE INC. RUWE INC. NEEDLE SMOKING TOBACCO PACKER HAND RUWE SMOKING TOBACCO PACKER HAND RUWE STERILE 1 FAMILY FAMILY CC OR PHARMACY PHARMACY LESS EACH LIPID 49513 [facility] PANEL 0 [facility] LIPOPROTE 64903 [facility] IN DIRECT 0 [facility] MEASUREME NT LDL CHOLESTER OL BLOOD 27459 [facility] COUNT 0 [facility] COMPLETE AUTO&AUTO DIFRNTL WBC HEMOGLOBI 52538 [facility] OF N 0 [facility] GLYCOSYLA DANNA A1C BLOOD [address] COUNT 0 DAVID DAVID COMPLETE AUTO&AUTO MEDICAL MEDICALCE DIFRNTL NTER NTER WBC COLLECTIO [address] N VENOUS 0 DAVID DAVID BLOOD VENIPUNCT [facility] MEDICAL URE NTER NTER URNLS DIP [address] 0 DAVID DAVID STICK/TAB LET RGNT MEDICALCE MEDICALCE NON-AUTO NTER NTER W/O MICRSCP COMPREHEN [address] SIVE 0 DAVID DAVID METABOLIC PANEL [place] [address] LIPASE 0 DAVID [place] [address] RADIOLOGY KERMAN, ABDOMEN 0 RADHA H W/CONTRAS ASSOCIATE T S PSC MATERIAL CT PELVIS 16983 RADIOLOGY KERMAN, 0 RADHA H W/CONTRAS ASSOCIATE T S PSC MATERIAL OPHTHALMO 30768 CHRISTINA VASQUEZ SCPY 0 LOIDA Buckley EXTENDED RETINAL DRAWING I&R 1ST DETERMINA 09456 CHRISTINA VASQUEZ TIKARISSA 0 LOIDA Buckley REFRACTIV E STATE GLUCOSE 34918 [facility] RAN, QUANTITAT 0 [place] M [facility] BLOOD FAMILY XCPT CARE, REAGENT INC. STRIP RADEX 28570 RADIOLOGY MILLS, SPINE 0 SALLY W LUMBOSACR ASSOCIATE AL 2/3 S PSC VIEWS RADEX HIP 81975 RADIOLOGY LUBBERS, 0 DEEPA UNILATERA ASSOCIATE L S PSC COMPLETE MINIMUM 2 VIEWS RADEX 11900 RADIOLOGY EISEMAN, HIPS 0 SUZY R BILATERAL ASSOCIATE 2 VIEWS S PSC ANTEROPOS T PELVIS RHYTHM 05624 EMERGENCY EMERY, ECG 1-3 0 CARE MEGHA L LEADS PHYS INTERPRET [facility] & [place] REPRT [place] ECG 31932 DIAGNOSMICHELLE DOBSON ROUTINE 0 C , TAZ J ECG CARDIOLOG W/LEAST ISTS INC 12 LDS I&R ONLY GLUC BLD [address] GLUC MNTR 0 DAVID DAVID DEV CLEARED MEDICALCE MEDICALCE FDA SPEC NTER NTER HOME USE THERAPEUT [address] IC 0 DAVID DAVID PROPHYLAC TIC/DX MEDICALCE MEDICALCE INJECTION NTER NTER SUBQ/IM PUNCTURE [address] ASPIRATIO 0 DAVID DAVID N ABSCESS HEMATOMA MEDICALCE MEDICALCE NTER NTER BULLA/CYS T URNLS DIP [address] 0 DAVID DAVID STICK/TAB LET RGNT MEDICALCE MEDICALCE NON-AUTO NTER NTER W/O MICRSCP INCISION [address] & 0 DAVID DAVID DRAINAGE ABSCESS MEDICALCE MEDICALCE SIMPLE/SI NTER NTER NGLE RADEX [address] SHOULDER 9 DAVID DAVID COMPLETE MINIMUM 2 MEDICALCE MEDICALCE VIEWS NTER NTER RADEX [address] WRIST 9 DAVID DAVID COMPLETE MINIMUM 3 MEDICALCE MEDICALCE VIEWS NTER NTER RADEX [address] ELBOW 9 DAVID DAVID COMPLETE MINIMUM 3 MEDICALCE MEDICALCE VIEWS NTER NTER RADEX 23426 [facility] RIBS 9 [facility] ALICE L 2 VIEWS RADEX HIP 07943 [facility] 9 [facility] ALICE L COMPLE[place] [address] [place] [address] [facility] ABDOMEN 9 [facility] W/[facility] T MATERIAL CT PELVIS [address] W/[facility] T MATERIAL BASIC 34014 [facility] METABOLIC [address] [place] [address] PANEL [facility] CALCIUM TOTAL COLLECTIO 70968 [facility] N VENOUS 9 [facility] BLOOD [facility] VENIPUNCT URE RADEX 88438 [facility] SHOULDER [address] [place] [address] COMPLETE [facility] MINIMUM 2 VIEWS RADIOLOGI 61361 [facility] C EXAM [address] [place] [address] CHEST 2 [facility] VIEWS FRONTAL&L ATERAL POLYSOM 81796 ST 6/>YRS 9 DAVID DAVID SLEEP W/CPAP MEDICALCE MEDICALCE 4/> ADDL NTER NTER KELLEE ATTND POLYSOM 25205 [facility] 6/>YRS 9 DAVID DAVID SLEEP W/CPAP MEDICALCE MEDICALCE 4/> ADDL NTER NTER KELLEE ATTND POLYSOM 59782 [facility] 6/>YRS 9 DAVID DAVID SLEEP 4/> ADDL MEDICALCE [place] [address] [facility] MAXILLOFA 9 DAVID DAVID CIAL W/O CONTRAST MEDICALCE MEDICALCE MATERIAL NTER NTER DUP-SCAN 36326 [facility] XTR [facility]INS [facility] COM[facility] MEDICALCE MEDICALCE BILATERAL NTER NTER STUDY RADIOLOGI 97716 [facility] C EXAM 8 [facility] CHEST 2 VIEWS MEDICALCE MEDICALCE FRONTAL&L NTER NTER ATERAL Encounters Encounter Start End Date Code Location Performer Type Date HOSPITAL ST - 7 7 DAVID OUTPATIEN T [facility] E EDGE OFFICE 33278 EHN JANEE EHN JANEE OUTPATIEN 5 5 T VISIT [address]ES [address] NALLELY OUTPATIEN 5 5 DAVID TRO T VISIT [address] ACCESS 4 4 [facility] EMERGENCY [address]198 ST. 4 4 DAVID FIELDS [place] T VISIT MODERATE SEVERITY HOSPITAL ST - OTHER 4 4 DAVID MED CTR SMOKING TOBACCO PACKER HAND ST OFFICE 18373 [facility] 4 4 [facility] VISIT [facility] [address] - 3 3 [facility] [place] 63138 [facility] 3 3 [facility] VIS[facility] MODERATE SEVERITY EMERGENCY 36272 [facility] DEPT 3 3 DAVID VISIT MED CTR HIGH SEVERITY& THREAT [facility] EMERGENCY 94369 [facility] VISIT MODERATE [facility]VERITY [facility]OSP[facility] ST - 3 3 DAVID OUTPATIEN MED CTR T SMOKING TOBACCO PACKER HAND ST OFFICE 88624 EHN JANEE EHN JANEE OUTPATIEN 3 3 T VISIT 15 MINUTES OFFICE 81422 NALLELY NALLELY OUTPATIEN 3 3 TRO TRO T VISIT 25 MINUTES OFFICE 20447 EHN JANEE EHN JANEE OUTPATIEN 2 2 T VISIT 15 MINUTES OFFICE 56269 [facility] 2 2 H ANG H ANG T VISIT 25 MINUTES OFFICE 95753 [facility] 2 2 H ANG H ANG T VISIT 25 MINUTES OFFICE 93035 [facility] 2 2 H ANG H ANG T VISIT 10 MINUTES OFFICE 99164 [facility] 2 2 H ANG H ANG T VISIT 10 MINUTES OFFICE 85946 [facility] 2 2 H ANG H ANG T VISIT 25 MINUTES OFFICE 09636 [facility] 2 2 H ANG H ANG T VISIT 10 MINUTES OFFICE 91613 [facility] 2 2 H ANG H ANG T VISIT 25 MINUTES OFFICE 00124 [facility] 2 2 H ANG H ANG T VISIT 25 MINUTES OFFICE 19820 [facility] 2 2 H ANG H ANG T VISIT [address] - 2 2 DAVID OUTPATIEN T MEDICALCE NTER EMERGENCY 60413 [facility] DEPT 2 2 DAVID GRE VISIT [facility] SEVERITY& THREAT FUN EMERGENCY 76719 EMERGENCY [place] 2 2 CARE ALTHEA DEPARTMEN PHYS T VISIT [facility] HIGH/URGE NT SEVERITY HOSPITAL ST - 1 1 DAVID OUTPATIEN FT T [facility] EMER[facility]ENC[facility] 81994 ST 1 1 DAVID DEPARTMEN FT T VISIT [place] MODERATE SEVERITY EMERGENCY 57275 ST DEPT 1 1 DAVID VISIT HIGH MEDICALCE SEVERITY& NTER THREAT [facility] ST - 1 1 DAVID OUTPATIEN T MEDICALCE NTER EMERGENCY 38231 EMERGENCY GAUTRAUD 1 1 CARE MATTHIEU DEPARTMEN PHYS T VISIT [facility] HIGH/URGE NT SEVERITY HOSPITAL ST - 1 1 DAVID OUTPATIEN T MEDICALCE NTER EMERGENCY 92179 ST 1 1 DAVID DEPARTMEN T VISIT MEDICALCE MODERATE NTER SEVERITY HOSPITAL ST - 1 1 DAVID OUTPATIEN T MEDICALCE NTER EMERGENCY 82715 ST 1 1 DAVID DEPARTMEN T VISIT MEDICALCE LOW/MODER NTER SEVERITY OFFICE 82508 [facility] 1 1 [place] T VISIT FAMILY 25 CARE, IN MINUTES HOSPITAL ST - 1 1 DAVID OUTPATIEN T MEDICALCE NTER EMERGENCY 91017 ST 1 1 DAVID DEPARTMEN T VISIT MEDICALCE MODERATE NTER SEVERITY EMERGENCY 15303 [facility] 1 1 DAVID DEPARTMEN MED CTR T VISIT MODERATE SEVERITY EMERGENCY 67182 [facility] 1 1 DAVID KASI DEPARTMEN MED CTR T VISIT MODERATE SEVERITY HOSPITAL ST - 1 1 DAVID OUTPATIEN T MEDICALCE NTER EMERGENCY 65778 ST 1 1 DAVID DEPARTMEN T VISIT MEDICALCE HIGH/URGE NTER NT SEVERITY HOSPITAL ST - 1 1 DAVID OUTPATIEN T MEDICALCE NTER EMERGENCY 12448 ST 1 1 DAVID DEPARTMEN T VISIT MEDICALCE MODERATE NTER SEVERITY EMERGENCY 70644 ST. 1 1 DAVID DEPARTMEN ROB T VISIT MODERATE SEVERITY EMERGENCY 97597 EMERGENCY LE HIE 1 1 CARE DEPARTMEN PHYS T [facility]IT [facility] ST. - 1 1 DAVID OUTPATIEN ROB T OFFICE [address]22 [facility] 1 DAVID TRO T VISIT 25 PHYSICIAN MINUTES S [facility] [facility] - OTHER 0 0 DAVID MEDICALCE NTER EMERGENCY 13496 ST 0 0 DAVID DEPARTMEN T VISIT MEDICALCE MODERATE NTER SEVERITY HOSPITAL ST - 0 0 DAVID OUTPATIEN T MEDICALCE NTER OFFICE 92109 [facility] OUT[facility] 0 0 [place] T VISIT FAMILY 25 CARE, IN MINUTES EMERGENCY 25982 EMERGENCY BELL 0 0 CARE SARMAD DEPARTMEN PHYS T VISIT [facility] HIGH/URGE NT SEVERITY EMERGENCY 69957 EMERGENCY HERFEL 0 0 CARE DELL DEPARTMEN PHYS T VISIT [facility] HIGH/URGE NT SEVERITY EMERGENCY 06189 EMERGENCY HERFEL DEPT 0 0 CARE FRANCIA VISIT PHYS HIGH [facility] SEVERITY& THREAT [facility] HOSPITAL ST. - 0 0 DAVID OUTPATIEN ROB T EMERGENCY 86445 ST. 0 0 DAVID DEPARTMEN ROB T VISIT HIGH/URGE NT SEVERITY EMERGENCY 13327 ST JEN 0 0 DAVID ANT DEPARTMEN MED CTR T VISIT MODERATE SEVERITY EMERGENCY 60977 EMERGENCY RICHARDSO 0 0 CARE N THO DEPARTMEN PHYS T VISIT [facility] HIGH/URGE NT SEVERITY EMERGENCY 51658 ST 0 0 DAVID DEPARTMEN T VISIT MEDICALCE MODERATE NTER SEVERITY HOSPITAL ST - 0 0 DAVID OUTPATIEN T MEDICALCE NTER EMERGENCY 60133 ST 0 0 DAVID DEPARTMEN T VISIT MEDICALCE HIGH/URGE NTER NT SEVERITY HOSPITAL ST - 0 0 DAVID OUTPATIEN T MEDICALCE NTER EMERGENCY 96687 ST HUSSEIN 0 0 DAVID [place] DEPARTMEN MED CTR T VISIT MODERATE SEVERITY OFFICE 43976 [facility] OUT[facility] 0 0 [place] T VISIT FAMILY 25 CARE, IN MINUTES HOSPITAL ST - 0 0 DAVID OUTPATIEN T MEDICALCE NTER EMERGENCY 70624 ST 0 0 DAVID DEPARTMEN T VISIT MEDICALCE HIGH/URGE NTER NT SEVERITY [facility]OSPITAL ST - 0 0 DAVID OUTPATIEN T MEDICALCE NTER OFFICE 51419 CHRISTINA VASQUEZ, OUTPATIEN 0 0 LOIDA Buckley T NEW 45 MINUTES OFFICE 23246 [facility] THOMAS OUTPATIEN 0 0 [place] M T VISIT FAMILY 25 CARE, MINUTES INC. EMERGENCY 11217 EMERGENCY SHER 0 0 CARE ESTER DEPARTMEN PHYS T VISIT [facility] HIGH/URGE NT SEVERITY EMERGENCY 00384 EMERGENCY EMERY, DEPT 0 0 CARE MEGHA L VISIT PHYS HIGH [facility] SEVERITY& [place] THREAT [facility] ST - 0 0 DAVID OUTPATIEN T MEDICALCE NTER EMERGENCY 51689 ST 0 0 [facility] T VISIT MEDICALCE MODERATE NTER SEVERITY EMERGENCY 21886 ST 0 0 [facility] T [facility]ISIT MEDICALCE MODERATE NTER SEVERITY [facility]OSPITAL ST - 0 0 DAVID OUTPATIEN T MEDICALCE NTER EMERGENCY 26632 [facility] HIGH/URGE NTER NT SEVERITY [facility] ST - 9 9 DAVID OUTPATIEN T MEDICALCE [facility] [address] T EMERGENCY [address] T VISIT HIGH/URGE NT SEVERITY HOSPITAL ST 9 9 DAVID OUTPATIEN T MEDICALCE [facility] H[facility]PITAL ST - 9 9 DAVID OUTPATIEN T MEDICALCE NT OFFICE 56643 [facility] 9 9 DAVID T VISIT 5 MINUTES MEDICALCE NT OFFICE 37837 [facility] DAVID T VISIT 5 MINUTES MEDICALCE [facility] ST - 9 9 [facility] EMERGENCY [address]91 ST 9 9 DAVID [facility] T VISIT MEDICALCE MODERATE NTER SEVERITY [facility] ST - 9 9 DAVID OUTPATIEN T MEDICALCE [facility] ST - 9 9 DAVID OUTPATIEN T MEDICALCE NT EMERGENCY 47642 9 [facility] VISIT MEDICALCE MODERATE NTER SEVERITY [facility] ST - 9 9 DAVID OUTPATIEN T MEDICALCE [facility] EMERGENCY 92323 8 [facility] VISIT MEDICALCE MODERATE NTER SEVERITY [facility] ST - 8 8 DAVID OUTPATIEN T MEDICALCE [facility]
--- OUTSIDE RECORDS SUMMARY | 2017-01-13 12:02 | External Medical Summary Rpt | CCD ---
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 ANY NUMBER PT ENC MANUAL 83442 EHN JANEE EHN JANEE THERAPY 2 TQS 1/> REGIONS EACH 15 MINUTES CHIROPRAC 69594 EHN JANEE EHN JANEE TIC 2 MANIPULAT [facility] SP[facility] 3-4 REGIONS THERAPEUT 46405 EHN JANEE EHN JANEE IC PX 1/> 2 AREAS EACH 15 MIN EXERCISES APPL 54335 EHN JANEE EHN JANEE MODALITY 2 1/> AREAS ELEC STIMJ UNATTENDE D APPL 22804 EHN JANEE EHN JANEE MODALITY 2 1/> 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 REPL PAULINA A4234 HDIS HDIS ALKALINE 2 J CELL ALKA BG MON OWN PT EA SPRING-PO A4258 HDIS HDIS WERED 2 DEVICE FOR LANCET EACH NORMAL A4256 HDIS HDIS LOW AND 2 HIGH CALIBRATO R SOLUTION/ CHIPS BLD GLU A4253 HDIS HDIS TEST/REAG 2 T STRIPS HOME BLD GLU MON-50 LANCETS A4259 HDIS HDIS PER BOX 2 OF 100 DRUG SCR G0434 HOUSEWORT HOUSEWORT NOT 2 H ANG H ANG CHROMATOG RAPHIC; ANY NUMBER PT ENC MANUAL 42798 EHN JANEE EHN JANEE THERAPY 2 TQS 1/> REGIONS EACH 15 MINUTES CHIROPRAC 32259 EHN JANEE EHN JANEE TIC 2 MANIP[facility]AT [facility] [place] SP[facility] 3-4 REGIONS THERAPEUT 55321 EHN JANEE EHN JANEE IC PX 1/> 2 AREAS EACH 15 MIN EXERCISES APPL 61399 EHN JANEE EHN JANEE MODALITY 2 1/> AREAS ELEC STIMJ UNATTENDE D APPL 46592 EHN JANEE EHN JANEE MODALITY 2 1/> 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 NEBULIZER E0570 MED 4 MED 4 WITH 2 HOME INC HOME INC COMPRESSO R DRUG SCR G0434 HOUSEWORT HOUSEWORT NOT 2 H ANG H ANG CHROMATOG RAPHIC; ANY NUMBER PT ENC NEBULIZER E0570 MED 4 MED 4 WITH 2 HOME INC HOME INC COMPRESSO R DRUG SCR G0434 HOUSEWORT HOUSEWORT NOT 2 H ANG H ANG CHROMATOG RAPHIC; ANY NUMBER PT ENC RADEX [address] SPINE 2 DAVID DAVID LUMBOSACR AL 2/3 MEDICALCE MEDICALCE VIEWS NTER NTER BLD GLU A4253 NATIONS NATIONS TEST/REAG 2 HEALTH HEALTH T STRIPS HOME BLD GLU MON-50 NORMAL A4256 NATIONS NATIONS LOW AND 2 HEALTH HEALTH HIGH CALIBRATO R SOLUTION/ CHIPS NEBULIZER E0570 MED 4 MED 4 WITH 2 HOME INC HOME INC COMPRESSO R NORMAL A4256 HDIS HDIS LOW AND 2 HIGH CALIBRATO R SOLUTION/ CHIPS BLD GLU A4253 HDIS HDIS TEST/REAG 2 T STRIPS HOME BLD GLU MON-50 LANCETS A4259 HDIS HDIS PER BOX 2 OF 100 NEBULIZER E0570 MED 4 MED 4 WITH 2 HOME INC HOME INC COMPRESSO R ALBUTEROL J7620 MED 4 MED 4 TO 2.5 2 HOME INC HOME INC MG & IPRATROPI UM BROM TO 0.5 MG ADMN SET A7005 MED 4 MED 4 W/SM VOL 2 HOME INC HOME INC NONFILTR NEBULIZR NON-DISPB L RADIOLOGI 76421 RADIOLOGY [place] C EXAM 2 DIANELYS CHEST 2 ASSOCIATE VIEWS S PSC FRONTAL&L ATERAL ECG 73563 HULLER HULLER ROUTINE 2 RAL RAL ECG W/LEAST 12 LDS I&[place] [address] RADIOLOGY RADIOLOGY HEAD/BRAI 2 N W/O ASSOCIATE ASSOCIATE CONTRAST S PSC S PSC MATERIAL BLD GLU A4253 NATIONS NATIONS TEST/REAG 1 HEALTH HEALTH T STRIPS HOME BLD GLU MON-50 NORMAL A4256 NATIONS NATIONS LOW AND 1 HEALTH HEALTH HIGH CALIBRATO R SOLUTION/ [facility]IPS [facility] A4258 NATIONS NATIONS WERED 1 HEALTH HEALTH DEVICE FOR LANCET EACH LANCETS A4259 NATIONS NATIONS PER BOX 1 [facility] OF 100 ECG 48541 DIAGNOSTI JEFFERSONANNOLD ROUTINE 1 C PEG ECG CARDIOLOG W/LEAST ISTS INC 12 LDS I&R ONLY ECG [address] ROUTINE 1 DAVID HERNANDEZ ECG FT FT W/LEAST BLANCA BLANCA 12 LDS TRCG ONLY W/O I&R RHYTHM 20540 [facility]-3 1 CARE ROSIBEL LEADS PHYS INTERPRET NORTHERN ATION & REPRT ON RADIOLOGI [address] C EXAM 1 DAVID HERNANDEZ CHEST 2 FT FT VIEWS BLANCA BLANCA FRONTAL&L ATERAL RADIOLOGI 03613 RADIOLOGY ROEBKER C EXAM 1 JAM CHEST 2 ASSOCIATE VIEWS S PSC FRONTAL&L ATERAL COLLECTIO [address] N VENOUS 1 DAVID HERNANDEZ BLOOD VENIPUNCT MEDICALCE MEDICALCE URE NTER NTER COMPREHEN [address] ST [address] SIVE 1 DAVID HERNANDEZ METABOLIC PANEL MEDICALCE MEDICALCE NTER NTER GASES [address] BLOOD PH 1 DAVID DAVID DIRECT GABRIEL XCPT MEDICALCE MEDICALCE PULSE NTER NTER OXIMITRY URNLS DIP [address] 1 DAVID HERNANDEZ STICK/TAB LET RGNT MEDICALCE MEDICALCE NON-AUTO NTER NTER W/[place] [address] INFUSION 1 DAVID HERNANDEZ HYDRATION INITIAL MEDICALCE MEDICALCE 31 MIN-1 NTER NTER HOUR AMB A0427 [facility] SERVICE 1 FIRE FIRE ALS DEPT DEPT EMERGENCY TRANSPORT L[place] [address] [place] [address] LIPASE 1 DAVID HERNANDEZ MEDICALCE MEDICALCE NTER NTER GLUC BLD [address] GLUC MNTR 1 DAVID HERNANDEZ DEV CLEARED MEDICALCE MEDICALCE FDA SPEC NTER NTER HOME USE BLOOD [address] COUNT 1 DAVID HERNANDEZ COMPLETE AUTO&AUTO MEDICALCE MEDICALCE DIFRNTL NTER NTER WBC GROUND A0425 [facility] MILEAGE 1 FIRE FIRE PER DEPT DEPT STATUTE MILE RADEX [address] FOOT 1 DAVID HERNANDEZ COMPLETE MINIMUM 3 MEDICALCE MEDICALCE VIEWS NTER NTER HEMOGLOBI 21280 [facility] N 1 [place] GERARD[place] FAMILY [address] RADIOLOGI [address] RADIOLOGY DOERGER C EXAM 1 KIR CHEST 2 ASSOCIATE VIEWS S PSC FRONTAL&L ATERAL AMBULANCE A0429 [facility] SERVICE 1 FIRE FIRE BLS DEPT DEPT EMERGENCY TRANSPORT GROUND A0425 [facility]RE PER DEPT DEPT STATUTE MILE RADEX HIP 05151 RADIOLOGY MENDY 1 III [place] UNILATERA ASSOCIATE L S PSC COMPLETE MINIMUM 2 VIEWS RADIOLOGI 74170 RADIOLOGY DOERGER C EXAM 1 KIR CHEST 2 ASSOCIATE VIEWS S PSC FRONTAL&L ATERAL RADEX 03682 RADIOLOGY BRANDSER SPINE 1 PATTI LUMBOSACR ASSOCIATE AL 2/3 S PSC VIEWS GLUC BLD [address] GLUC MNTR 1 DAVID DAVID DEV ROB RIVAS CLEARED FDA SPEC HOME USE PWR WC K0823 THE THE GRP 2 STD 1 SCOOTER SCOOTER CAPTAINS STORE STORE CHAIR PT TO &=300 LBS WHEELCHAI E0990 THE THE R ACCESS 1 SCOOTER SCOOTER ELEV LEG STORE STORE REST CMPL ASSMBL EA PWR E2365 THE THE WHLCHAIR 1 SCOOTER SCOOTER ACSS U-1 STORE STORE SEALED LEAD ACID BATTRY EA LIPID [address] PANEL 0 DAVID DAVID MEDICALCE MEDICALCE NTER NTER HEPATIC [address] FUNCTION 0 DAVID DAVID PANEL MEDICALCE MEDICALCE NTER NTER BASIC [address] METABOLIC 0 DAVID DAVID PANEL CALCIUM MEDICALCE MEDICALCE TOTAL NTER NTER [address] HYDROXY 0 DAVID DAVID INCLUDES FRACTIONS MEDICALCE MEDICALCE IF NTER NTER PERFORMED HEMOGLOBI [address] N 0 DAVID DAVID GLYCOSYLA DANNA A1C MEDICALCE MEDICALCE NTER NTER RADEX 65765 RADIOLOGY DOERGER ELBOW 0 KIR COMPLETE ASSOCIATE MINIMUM 3 S PSC VIEWS COMPREHEN 60792 [facility] SIVE 0 [facility] METABOLIC PANEL LIPID 63222 [facility] PANEL 0 [facility] LIPOPROTE 48593 [facility] IN DIRECT 0 [facility] MEASUREME NT LDL CHOLESTER OL BLOOD 97271 [facility] COUNT 0 [facility] COMPLETE AUTO&AUTO DIFRNTL WBC HEMOGLOBI 18863 [facility] N 0 [place] GLYCOSYLA FAMILY DANNA A1C CARE, IN BLD GLU A4253 SIMÓN Ansari TEST/REAG 0 RUWE INC. RUWE INC. T STRIPS LOG RIDER RUWE LOG RIDER RUWE HOME BLD F F GLU MON-50 LANCETS A4259 SIMÓN J. SIMÓN J. PER BOX 0 RUWE INC. [facility] INC. OF 100 LOG RIDER RUWE LOG RIDER RUWE F F RADEX 39835 RADIOLOGY VERA FOOT 0 [place] COMPLETE ASSOCIATE MINIMUM [address] [place] [address] INFUSION 0 DAVID DAVID HYDRATION ROB ROB INITIAL 31 MIN-[address] [place] [address] INFUSION 0 DAVID DAVID HYDRATION ROB ROB EACH ADDITIONA L HOUR RHYTHM 09081 EMERGENCY HERFEL ECG 1-3 0 CARE FRANCIA LEADS PHYS INTERPRET [facility]THERN ATION & REPRT ON BLOOD [address] TYPING 0 DAVID DAVID SEROLOGIC ROB ROB RH (D) COLLECTIO [address] N VENOUS 0 DAVID DAVID BLOOD ROB RIVAS VENIPUNCT URE BASIC [address] METABOLIC 0 DAVID DAVID PANEL ROB RIVAS CALCIUM TOTAL RADEX 48459 RADIOLOGY DOERGER SPINE 0 KIR CERVICAL ASSOCIATE 4 OR 5 S PSC VIEWS BLOOD [address] TYPING 0 DAVID DAVID SEROLOGIC ROB ROB ABO RADEX 90137 RADIOLOGY DOERGER SHOULDER 0 KIR COMPLETE ASSOCIATE MINIMUM 2 S PSC VIEWS BLOOD [address] COUNT 0 DAVID DAVID COMPLETE ROB ROB AUTO&[place] [address] TROPONIN 0 DAVID DAVID QUANTITAT ROB ROB [facility] RADEX HIP 83056 RADIOLOGY LAIB MATTHIEU 0 UNILATERA ASSOCIATE L S PSC COMPLETE MINIMUM [address] ROUTINE 0 DAVID DAVID ECG ROB ROB W/LEAST 12 LDS TRCG ONLY W/O I&R PROTHROMB [address] IN TIME 0 DAVID DAVID ROB ROB BLD GLU A4253 SIMÓN Ansari TEST/REAG 0 RUWE INC. RUWE INC. T STRIPS LOG RIDER RUWE LOG RIDER RUWE HOME BLD F F GLU MON-50 RADEX 08020 RADIOLOGY DOERGER SHOULDER 0 KIR COMPLETE ASSOCIATE MINIMUM 2 S PSC VIEWS RADEX 21679 RADIOLOGY NEILS PATTI ELBOW 0 COMPLETE ASSOCIATE MINIMUM 3 S PSC VIEWS SYRINGE A4206 SIMÓN Ansari WITH 0 [facility]WE INC. RUWE INC. NEEDLE LOG RIDER RUWE LOG RIDER RUWE STERILE 1 F F CC OR LESS EACH BLD GLU A4253 SIMÓN Ansari TEST/REAG 0 RUWE INC. RUWE INC. T STRIPS LOG RIDER RUWE LOG RIDER RUWE HOME BLD F F GLU MON-50 NORMAL A4256 LIBERTY LIBERTY LOW AND 0 MEDICAL MEDICAL HIGH SUPPLY SUPPLY CALIBRATO R SOLUTION/ CHIPS LANCETS A4259 SIMÓN Ansari PER BOX 0 [email or web address]. OF 100 LOG RIDER RUWE LOG RIDER RUWE F F SPRING-PO A4258 LIBERTY LIBERTY WERED 0 MEDICAL METER AND REGULATOR SHOP SUPERVISOR SUPPLY SUPPLY FOR LANCET EACH RADEX HIP 57238 RADIOLOGY VERA 0 HAVEN UNILATERA ASSOCIATE L S PSC COMPLETE MINIMUM 2 VIEWS RADIOLOGI 77150 RADIOLOGY VERA C 0 HAVEN EXAMINATI ASSOCIATE ON PELVIS S PSC 1/[address] 6/>YRS 0 DAVID DAVID SLEEP W/CPAP MEDICALCE MEDICALCE 4/ ADDL NTER NTER KELLEE ATTND BLOOD 33023 [facility] COUNT 0 [employer] [facility] COMPLETE AUTO&AUTO DIFRNTL WBC LIPOPROTE 88479 [facility] IN DIRECT 0 [employer] [facility] MEASUREME NT LDL CHOLESTER OL HEMOGLOBI 02201 [facility] N 0 [employer] [facility] [employer] [facility] GLYCOSYLA DANNA A1C SYRINGE A4206 SIMÓN Ansari WITH 0 RUWE INC. RUWE INC. NEEDLE LOG RIDER RUWE LOG RIDER RUWE STERILE 1 FAMILY FAMILY CC OR PHARMACY PHARMACY LESS EACH COMPREHEN 91267 [facility] SIVE 0 [employer] [facility] METABOLIC PANEL LIPID 66358 [facility] PANEL 0 [facility] [place] [address] [facility] THYROID 0 [facility] STIMULATI NG HORMONE TSH URNLS DIP [address] 0 DAVID DAVID STICK/TAB LET RGNT MEDICALCE MEDICALCE NON-AUTO NTER NTER W/O MICRSCP CT PELVIS [address] 0 DAVID DAVID W/CONTRAS T MEDICALCE MEDICALCE MATERIAL NTER NTER COMPREHEN [address] SIVE 0 DAVID DAVID METABOLIC PANEL MEDICALCE MEDICALCE NTER NTER COLLECTIO [address] N VENOUS 0 DAVID DAVID BLOOD VENIPUNCT MEDICALCE MEDICALCE URE NTER NTER BLOOD [address] COUNT 0 DAVID DAVID COMPLETE AUTO&AUTO MEDICALCE MEDICAL[place] [address] ABDOMEN 0 DAVID DAVID W/CONTRAS T MEDICALCE [place] [address] LIPASE 0 DAVID DAVID MEDICALCE MEDICALCE NTER NTER OPHTHALMO 53051 CHRISTINA VASQUEZ, INEZY 0 LOIDA Buckley EXTENDED RETINAL DRAWING I&R 1ST DETERMINA 59619 CHRISTINA VASQUEZ TION 0 LOIDA Buckley REFRACTIV E STATE GLUCOSE 08287 [facility] RAN, QUANTITAT 0 POINT RUDY M [facility] BLOOD FAMILY XCPT CARE, REAGENT INC. STRIP RADEX HIP 22974 RADIOLOGY LUBBERS, 0 DEEPA UNILATERA ASSOCIATE L S PSC COMPLETE MINIMUM 2 VIEWS RADEX 47963 RADIOLOGY MILLS, SPINE 0 SALLY W LUMBOSACR ASSOCIATE AL 2/3 S PSC VIEWS ECG 87436 DIAGNOSTI MCDANNOLD ROUTINE 0 C , TAZ J ECG CARDIOLOG W/LEAST ISTS INC 12 LDS I&R ONLY RADEX 16959 RADIOLOGY EISEMAN, HIPS 0 SUZY R BILATERAL ASSOCIATE 2 VIEWS S PSC ANTEROPOS T PELVIS RHYTHM 05746 EMERGENCY EMERY, ECG 1-3 0 CARE MEGHA L LEADS PHYS INTERPRET [place] & [place] REPRT ON THERAPEUT [address] IC 0 DAVID DAVID PROPHYLAC TIC/DX MEDICALCE MEDICALCE INJECTION NTER NTER SUBQ/IM GLUC BLD 44513 [facility] GLUC MNTR 0 [facility] DEV CLEARED MEDICALCE MEDICALCE FDA SPEC NTER NTER HOME USE URNLS DIP [address] 0 DAVID DAVID STICK/TAB LET RGNT MEDICALCE MEDICALCE NON-AUTO NTER NTER W/O MICRSCP PUNCTURE 08323 [facility] ASPIRATIO 0 [facility] N ABSCESS HEMATOMA MEDICALCE MEDICALCE NTER NTER BULLA/CYS T INCISION [address] & 0 DAVID DAVID DRAINAGE ABSCESS MEDICALCE MEDICALCE SIMPLE/SI NTER NTER NGLE RADEX [address]366 ST SHOULDER [address] [facility] COMPLETE MINIMUM 2 MEDICALCE MEDICALCE VIEWS NTER NTER RADEX [address] ELBOW [address] [facility] COMPLETE MINIMUM 3 MEDICALCE MEDICALCE VIEWS NTER NTER RADEX [address]86 ST WRIST [address] [facility] COMPLETE MINIMUM 3 [place]ICAL[place] [address] [facility] ABDOMEN [address] [place] [address] W/[facility] T MATERIAL RADEX HIP [address] UNILATERA [facility] L COMPLETE MINIMUM [address] PELVIS [address] W/[facility] T MATERIAL COLLECTIO 71039 [facility] N VENOUS [address] [place] [address] BLOOD [facility] VENIPUNCT URE RADEX 38615 [facility] SHOULDER [address] [place] [address] COMPLETE [facility] MINIMUM 2 VIEWS BASIC 09743 [facility] METABOLIC 9 [facility]ITAL [facility]PITAL PANEL [facility] CALCIUM TOTAL RADEX [address] [facility] [address] LUKE RIBS 9 [facility] UNILATERA [facility] L 2 VIEWS RADIOLOGI [address] [facility] [address] [place] C EXAM 9 [facility] CHEST 2 [facility] VIEWS FRONTAL&L ATERAL POLYSOM [address] 6/>YRS 9 DAVID DAVID SLEEP W/CPAP MEDICALCE MEDICALCE 4/> ADDL NTER NTER KELLEE ATTND POLYSOM 18402 ST 6/>YRS 9 DAVID DAVID SLEEP W/CPAP MEDICALCE MEDICALCE 4/> ADDL NTER NTER KELLEE ATTND POLYSOM 84414 ST 6/>YRS 9 DAVID DAVID SLEEP 4/> ADDL MEDICALCE [place] [address] [facility] MAXILLOFA 9 DAVID DAVID CIAL W/O CONTRAST MEDICALCE MEDICALCE MATERIAL NTER NTER DUP-SCAN 15446 [facility] XTR VEINS 9 DAVID DAVID COMPLETE MEDICALCE MEDICALCE BILATERAL NTER NTER STUDY RADIOLOGI 90619 [facility] C [facility] 2 VIEWS MEDICALCE MEDICALCE FRONTAL&L NTER NTER ATERAL Encounters Encounter Start End Date Code Location Performer Type Date HOSPITAL ST - 7 7 [facility] T HEALTHCAR E EDGE OFFICE 55738 EHN JANEE EHN JANEE OUTPATIEN 5 5 T VISIT [address] NALLELY OUTPATIEN 5 5 DAVID TRO T VISIT [address] ACCESS [address] [facility] EMERGENCY [address] 4 4 [facility] T VISIT MODERATE SEVERITY HOSPITAL ST - OTHER 4 4 [facility] CTR LOG RIDER ST OFFICE 33560 [facility] OUTPATIEN 4 [address] [place] [facility] [facility] [address] - 3 3 DAVID OUTPATIEN [place] T EMERGENCY [address] ST. 3 3 DAVID DEPARTMEN CLAUD[place]TE T VISIT MODERATE SEVERITY EMERGENCY [address]83[address] [facility] DEPT 3 3 DAVID VISIT MED CTR HIGH SEVERITY& THREAT FUNCJ EMERGENCY 46405 ST [facility] 3 3 [facility]ISIT MODERATE SEVERITY HOSP[facility] ST - 3 3 DAVID OUTPATIEN MED CTR T LOG RIDER ST OFFICE 24436 EHN JANEE EHN JANEE OUTPATIEN 3 3 T VISIT 15 MINUTES OFFICE 22782 N[facility] NALLELY OUTPATIEN 3 3 TRO TRO T VISIT 25 MINUTES OFFICE 19062 EHN JANEE EHN JANEE OUTPATIEN 2 2 T VISIT 15 MINUTES OFFICE 92581 [facility] 2 2 H ANG H ANG T VISIT 25 MINUTES OFFICE 52579 [facility] OUTPATIEN 2 2 H ANG H ANG T VISIT 25 MINUTES OFFICE 43343 [facility] OUTPATIEN 2 2 H ANG H ANG T VISIT 10 MINUTES OFFICE 23574 [facility] OUTPATIEN 2 2 H ANG H ANG T VISIT 10 MINUTES OFFICE 95432 [facility] OUTPATIEN 2 2 H ANG H ANG T VISIT 25 MINUTES OFFICE 35566 [facility] OUTPATIEN 2 2 H ANG H ANG T VISIT 10 MINUTES OFFICE 23026 [facility] OUTPATIEN 2 2 H ANG H ANG T VISIT 25 MINUTES OFFICE 01907 [facility] OUTPATIEN 2 2 H ANG H ANG T VISIT 25 MINUTES OFFICE 88438 [facility] 2 2 H ANG H ANG T VISIT [address] - 2 2 DAVID OUTPATIEN T MEDICALCE NTER EMERGENCY 80976 [facility] DEPT 2 2 DAVID GRE VISIT FAMILY HIGH PRACTICE SEVERITY& THREAT FUNCJ EMERGENCY 79148 EMERGENCY [place] 2 2 CARE ALTHEA DEPARTMEN PHYS T [facility] HIGH/URGE NT SEVERITY EMERGENCY 08751 ST 1 1 DAVID DEPARTMEN FT T VISIT [facility] ST - 1 1 DAVID OUTPATIEN FT T [facility] ST - 1 1 DAVID OUTPATIEN T MEDICALCE NTER EMERGENCY 70430 DEPT 1 1 DAVID VISIT HIGH MEDICALCE SEVERITY& NTER THREAT FUN EMERGENCY 34623 EMERGENCY GAUTRAUD 1 1 CARE MATTHIEU DEPARTMEN PHYS T VISIT [facility] HIGH/URGE NT SEVERITY HOSPITAL ST - 1 1 DAVID OUTPATIEN T MEDICALCE NTER EMERGENCY 98818 ST 1 1 DAVID DEPARTMEN T VISIT MEDICALCE MODERATE NTER SEVERITY [facility]OSPITAL ST - 1 1 DAVID OUTPATIEN T MEDICALCE NTER EMERGENCY 11023 ST 1 1 DAVID DEPARTMEN T VISIT MEDICALCE LOW/MODER NTER SEVERITY OFFICE 79713 [facility] OUTPATIEN 1 1 [place] T VISIT FAMILY 25 CARE, IN MINUTES HOSPITAL ST - 1 1 DAVID OUTPATIEN T MEDICALCE NTER EMERGENCY 17808 ST 1 1 DAVID DEPARTMEN T VISIT MEDICALCE MODERATE NTER SEVERITY EMERGENCY 84170 [facility] 1 [address] DAV[address] T VISIT MODERATE SEVERITY EMERGENCY 93278 [facility] 1 1 DAVID KASI DEPARTMEN MED CTR T VISIT MODERATE SEVERITY EMERGENCY 09950 ST 1 1 DAVID DEPARTMEN T VISIT MEDICALCE HIGH/URGE NTER NT SEVERITY HOSPITAL ST - 1 1 DAVID OUTPATIEN T MEDICALCE NTER [facility] ST - 1 1 DAVID OUTPATIEN T MEDICALCE NTER EMERGENCY 29562 ST 1 1 DAVID DEPARTMEN T VISIT MEDICALCE MODERATE NTER SEVERITY [facility]OSPITAL ST. - 1 1 DAVID OUTPATIEN ROB T EMERGENCY 63372 ST. 1 1 DAVID DEPARTMEN ROB T VISIT MODERATE SEVERITY EMERGENCY 06315 EMERGENCY LE HIE 1 1 CARE DEPARTMEN PHYS T VISIT [facility] H[facility]URGE NT SEVERITY OFFICE 65987 [facility] OUTPATIEN 1 1 [facility] TRO T VISIT 25 PHYSICIAN MINUTES [facility] - 0 0 [facility] OUTPATIEN T MEDICALCE NTER EMERGENCY 65309 ST 0 0 [facility] DEPARTMEN T VISIT MEDICALCE MODERATE NTER SEVERITY OFFICE 83978 [facility] 0 0 [place] T VISIT FAMILY 25 CARE, IN MINUTES EMERGENCY 42571 EMERGENCY BELL 0 0 CARE SARMAD DEPARTMEN PHYS T VISIT [facility] HIGH/URGE NT SEVERITY EMERGENCY 18473 EMERGENCY HERFEL 0 0 CARE DELL DEPARTMEN PHYS T VISIT [facility] HIGH/URGE NT SEVERITY EMERGENCY 95903 EMERGENCY HERFEL DEPT 0 0 CARE FRANCIA VISIT PHYS HIGH [facility] SEVERITY& THREAT [facility]PITAL ST. - 0 0 [facility] OUTPATIEN ROB T EMERGENCY 06725 ST. 0 0 [facility] DEPARTMEN ROB T VISIT HIGH/URGE NT SEVERITY EMERGENCY 49367 ST JEN 0 0 DAV[facility] ANT DEPARTMEN MED CTR T VISIT MODERATE SEVERITY EMERGENCY 09513 EMERGENCY RICHARDSO 0 0 CARE N THO DEPARTMEN PHYS T VISIT [facility]GE NT SEVERITY [facility] ST - 0 0 [facility] OUTPATIEN T MEDICALCE NTER EMERGENCY 91535 ST 0 0 [facility] DEPARTMEN T VISIT MEDICALCE MODERATE NTER SEVERITY [facility] ST - 0 0 [facility] OUTPATIEN T MEDICALCE NTER EMERGENCY 81894 ST 0 0 [facility] DEPARTMEN T VISIT MEDICALCE HIGH/URGE NTER NT SEVERITY EMERGENCY 77262 ST HUSSEIN 0 0 [facility] [place] DEPARTMEN MED CTR T VISIT MODERATE SEVERITY OFFICE 88156 [facility] KENNY OUTPATIEN 0 0 [place] T VISIT FAMILY 25 CARE, IN MINUTES HOSPITAL ST - 0 0 [facility] OUTPATIEN T MEDICALCE NTER EMERGENCY 98776 ST 0 0 [facility] DEPARTMEN T VISIT [facility] HIGH/URGE NTER NT SEVERITY [facility] ST - 0 0 [facility] OUTPATIEN T MEDICALCE NTER OFFICE 98329 [facility]INA VASQUEZ OUTPATIEN 0 0 LOIDA Ina MARISCAL A T NEW 45 MINUTES OFFICE 19630 [facility] OUTPATIEN 0 0 [place] M T VISIT FAMILY 25 CARE, MINUTES INC. EMERGENCY 81677 EMERGENCY SHER 0 0 CARE ESTER DEPARTMEN PHYS T VISIT [facility] HIGH/URGE NT SEVERITY EMERGENCY 71608 EMERGENCY EMERY, DEPT 0 0 CARE MEGHA L VISIT PHYS HIGH [facility] SEVERITY& [place] THREAT [facility] EMERGENCY [address]990 ST 0 0 [facility] T VISIT MEDICALCE MODERATE NTER SEVERITY [facility] ST - 0 0 [facility] OUTPATIEN T MEDICALCE [facility] EMERGENCY [address]2474 ST 0 0 [facility] T VISIT MEDICALCE MODERATE NTER SEVERITY EMERGENCY [address]86 ST 9 [facility]IGH[facility]URGE NTER [facility]PITAL ST 9 9 [facility] [address] EMERGENCY [address] VISIT HIGH/URGE NT SEVERITY [facility]OSPITAL [facility] 9 9 [facility] OUTPATIEN T [facility] 9 [facility] OUTPATIEN T MEDICALCE [facility] OFFICE 50573 [facility] 9 9 DAV[facility] T VISIT 5 [facility] 9 9 [facility] OUTPATIEN T MEDICALCE [facility] OFFICE 86834 [facility] 9 9 [facility] T [facility]ISIT 5 [facility] 9 [facility] OUTPATIEN T MEDICALCE [facility] EMERGENCY [address] ST 9 9 [facility] VISIT MEDICALCE MODERATE NTER SEVERITY [facility] ST - 9 9 [facility] EMERGENCY [address] ST 9 9 [facility] VISIT MEDICALCE MODERATE NTER SEVERITY [facility] - 9 9 [facility]GENC[facility] [address] ST 8 8 [facility] VISIT MEDICALCE MODERATE NTER SEVERITY [facility] - 8 8 DAVIDCAROLINAS [facility]
--- OUTSIDE RECORDS SUMMARY | 2017-01-13 12:02 | External Medical Summary Rpt | CCD ---
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 RADIOLOGY MENDY 1 III [place] UNILATERA ASSOCIATE L S PSC COMPLETE MINIMUM 2 VIEWS RADIOLOGI 77466 RADIOLOGY DOERGER C EXAM 1 KIR CHEST 2 ASSOCIATE VIEWS S PSC FRONTAL&L ATERAL RADEX 14648 RADIOLOGY BRANDSER SPINE 1 PATTI LUMBOSACR ASSOCIATE AL 2/3 S PSC VIEWS GLUC BLD [address] GLUC MNTR 1 DAVID DAVID [...] STORE SEALED LEAD ACID BATTRY EA LIPID [address] PANEL 0 DAVID DAVID MEDICALCE MEDICALCE NTER NTER HEPATIC [address] FUNCTION 0 DAVID DAVID PANEL MEDICALCE MEDICALCE NTER NTER BASIC [address] ST [address] METABOLIC 0 DAVID DAVID PANEL CALCIUM MEDICALCE MEDICALCE TOTAL NTER NTER [address] HYDROXY 0 DAVID DAVID INCLUDES FRACTIONS MEDICALCE MEDICALCE IF NTER NTER PERFORMED HEMOGLOBI 8[address] N 0 DAVID DAVID GLYCOSYLA DANNA A1C MEDICALCE MEDICALCE NTER NTER RADEX 05793 RADIOLOGY DOERGER ELBOW 0 KIR COMPLETE ASSOCIATE MINIMUM 3 S PSC VIEWS COMPREHEN 52724 [facility] SIVE 0 [facility] METABOLIC PANEL LIPID 80576 [facility] PANEL 0 [facility] LIPOPROTE 47224 [facility] IN DIRECT 0 [facility] MEASUREME NT LDL CHOLESTER OL BLOOD 72760 [facility] COUNT 0 [facility] COMPLETE AUTO&AUTO DIFRNTL WBC HEMOGLOBI 23589 [facility] N 0 [place] GLYCOSYLA FAMILY DANNA A1C CARE, IN BLD GLU A4253 SIMÓN Ansari TEST/REAG 0 [employer] 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 SIMÓN J. PER BOX 0 [employer] OF 100 PUMP ASSEMBLER RUWE PUMP ASSEMBLER RUWE F F RADEX 40080 RADIOLOGY VERA FOOT 0 [place] COMPLETE ASSOCIATE MINIMUM 3 [place] [address] INFUSION 0 DAVID DAVID HYDRATION ROB ROB INITIAL 31 MIN-[address] [place] [address] INFUSION 0 DAVID DAVID HYDRATION ROB ROB EACH ADDITIONA L HOUR RHYTHM 50381 EMERGENCY HERFEL ECG 1-3 0 CARE FRANCIA LEADS PHYS INTERPRET [facility] AT[facility] & REPRT ON BLOOD [address] TYPING 0 DAVID DAVID SEROLOGIC ROB ROB RH (D) COLLECTIO 59693 ST[address]. N VENOUS 0 DAVID DAVID BLOOD ROB RIVAS VENIPUNCT URE BASIC [address] METABOLIC 0 DAVID DAVID PANEL ROB RIVAS CALCIUM TOTAL RADEX 27422 RADIOLOGY DOERGER SPINE 0 KIR CERVICAL ASSOCIATE 4 OR 5 S PSC VIEWS BLOOD [address] TYPING 0 DAVID DAVID SEROLOGIC ROB ROB ABO RADEX 83528 RADIOLOGY DOERGER SHOULDER 0 KIR COMPLETE ASSOCIATE MINIMUM 2 S PSC VIEWS BLOOD [address] COUNT 0 DAVID DAVID COMPLETE ROB ROB AUTO&[place] [address] TROPONIN 0 DAVID DAVID QUANTITAT ROB ROB [facility] RADEX HIP 66914 RADIOLOGY LAIB MATTHIEU 0 UNILATERA ASSOCIATE L S PSC COMPLETE MINIMUM [address] ROUTINE 0 DAVID DAVID ECG ROB ROB W/LEAST 12 LDS TRCG ONLY W/O I&R PROTHROMB [address] IN TIME 0 DAVID DAVID ROB ROB BLD GLU A4253 SIMÓN Ansari TEST/REAG 0 [employer] 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 NEEDLE PUMP ASSEMBLER RUWE PUMP ASSEMBLER RUWE STERILE 1 F F CC OR LESS EACH BLD GLU A4253 SIMÓN Ansari TEST/REAG 0 [employer] T STRIPS PUMP ASSEMBLER RUWE PUMP ASSEMBLER RUWE HOME BLD F F GLU MON-50 NORMAL A4256 [employer] LIBERTY LOW AND 0 MEDICAL MEDICAL HIGH SUPPLY SUPPLY CALIBRATO R SOLUTION/ [facility] LANCETS A4259 SIMÓN Ansari PER BOX 0 [employer] OF 100 PUMP ASSEMBLER RUWE PUMP ASSEMBLER RUWE F F SPRING-PO A4258 LIBERTY LIBERTY WERED 0 MEDICAL FEED MILL TENDER SUPPLY SUPPLY FOR LANCET EACH RADEX HIP 13476 RADIOLOGY VERA 0 HAVEN UNILATERA ASSOCIATE L S PSC COMPLETE MINIMUM 2 VIEWS RADIOLOGI 83169 RADIOLOGY VERA C 0 HAVEN EXAMINATI ASSOCIATE ON PELVIS S PSC 1/[address] 6/>YRS 0 DAVID DAVID SLEEP W/CPAP MEDICALCE MEDICALCE 4/ ADDL NTER NTER KELLEE ATTND BLOOD 19956 [facility] COUNT 0 [employer] [facility] COMPLETE AUTO&AUTO DIFRNTL WBC LIPOPROTE 79801 [facility] IN DIRECT 0 [employer] [facility] MEASUREME NT LDL CHOLESTER OL HEMOGLOBI 42809 [facility] N 0 [employer] [facility] [employer] [facility] GLYCOSYLA DANNA A1C SYRINGE A4206 SIMÓN Ansari WITH 0 [employer] NEEDLE PUMP ASSEMBLER RUWE PUMP ASSEMBLER RUWE STERILE 1 FAMILY FAMILY CC OR PHARMACY PHARMACY LESS EACH COMPREHEN 80416 [facility] SIVE 0 [employer] [facility] METABOLIC PANEL LIPID 91059 [facility] PANEL 0 [facility] [place] [address] [facility] THYROID 0 [facility] STIMULATI NG HORMONE TSH URNLS DIP [address] 0 DAVID DAVID STICK/TAB LET RGNT MEDICALCE MEDICALCE NON-AUTO NTER NTER W/O MICRSCP CT PELVIS [address] 0 DAVID DAVID W/CONTRAS T MEDICALCE MEDICALCE MATERIAL NTER NTER COMPREHEN [address] SIVE 0 DAVID DAVID METABOLIC PANEL MEDICALCE MEDICALCE NTER NTER COLLECTIO [address] N VENOUS 0 DAVID DAVID BLOOD VENIPUNCT MEDICALCE MEDICALCE URE NTER NTER BLOOD [address] COUNT 0 DAVID DAVID COMPLETE AUTO&AUTO MEDICALCE MEDICAL[place] [address] ABDOMEN 0 DAVID DAVID W/CONTRAS T MEDICALCE [place] [address] LIPASE 0 DAVID DAVID MEDICALCE MEDICALCE NTER NTER OPHTHALMO 65992 CHRISTINA VASQUEZ, INEZY 0 LOIDA Buckley EXTENDED RETINAL DRAWING I&R 1ST DETERMINA 77590 CHRISTINA VASQUEZ TION 0 LOIDA Buckley REFRACTIV E STATE GLUCOSE 99468 [facility] RAN, QUANTITAT 0 POINT RUDY M [facility] FAMILY XCPT CARE, [employer] INC. STRIP RADEX HIP 02060 RADIOLOGY LUBBERS, 0 DEEPA UNILATERA ASSOCIATE L S PSC COMPLETE MINIMUM 2 VIEWS RADEX 90193 RADIOLOGY MILLS, SPINE 0 SALLY W LUMBOSACR ASSOCIATE AL 2/3 S PSC VIEWS ECG 68698 DIAGNOSTI MCDANNOLD ROUTINE 0 C , TAZ J ECG CARDIOLOG W/LEAST ISTS INC 12 LDS I&R ONLY RADEX 80638 RADIOLOGY EISEMAN, HIPS 0 SUZY R BILATERAL ASSOCIATE 2 VIEWS S PSC ANTEROPOS T PELVIS RHYTHM 11433 EMERGENCY EMERY, ECG 1-3 0 CARE MEGHA L LEADS PHYS INTERPRET [facility] & [place] REPRT ON THERAPEUT [address] IC 0 DAVID DAVID PROPHYLAC TIC/DX MEDICALCE MEDICALCE INJECTION NTER NTER SUBQ/IM GLUC BLD 43694 [facility]UC MNTR [facility] DEV CLEARED MEDICALCE MEDICALCE FDA SPEC NTER NTER HOME USE URNLS DIP [address] 0 DAVID DAVID STICK/TAB LET RGNT MEDICALCE MEDICALCE NON-AUTO NTER NTER W/O MICRSCP PUNCTURE 07139 [facility] ASPIRATIO 0 [facility] N ABSCESS HEMATOMA MEDICALCE MEDICALCE NTER NTER BULLA/CYS T INCISION [address] & 0 DAVID DAVID DRAINAGE ABSCESS MEDICALCE MEDICALCE SIMPLE/SI NTER NTER NGLE RADEX [address]5733 ST SHOULDER 9 [facility] COMPLETE MINIMUM 2 MEDICALCE MEDICALCE VIEWS NTER NTER RADEX [address] ELBOW 9 [facility] COMPLETE MINIMUM 3 MEDICALCE MEDICALCE VIEWS NTER NTER RADEX [address]49 ST WRIST 9 [facility] COMPLETE MINIMUM 3 [place]ICAL[place] [address] [facility] ABDOMEN [address] [place] [address] W/[facility] T MATERIAL RADEX HIP [address] UNILATERA [facility] L COMPLETE MINIMUM [address] PELVIS [address] W/[facility] T MATERIAL COLLECTIO 38486 [facility] N VENOUS [address] [place] [address] BLOOD [facility] VENIPUNCT URE RADEX 65909 [facility] SHOULDER [address] [place] [address] COMPLETE [facility] MINIMUM 2 VIEWS BASIC 77095 [facility] METABOLIC 9 [facility] PANEL [facility] CALCIUM TOTAL RADEX [address] [facility] [address] LUKE RIBS 9 [facility] UNILATERA [facility] L 2 VIEWS RADIOLOGI [address] [facility] [address] UPPER BLACK EDDY C EXAM 9 [facility] CHEST 2 [facility] VIEWS FRONTAL&L ATERAL POLYSOM [address] 6/>YRS 9 DAVID DAVID SLEEP W/CPAP MEDICALCE MEDICALCE 4/> ADDL NTER NTER KELLEE ATTND POLYSOM 45506 ST 6/>YRS 9 DAVID DAVID SLEEP W/CPAP MEDICALCE MEDICALCE 4/> ADDL NTER NTER KELLEE ATTND POLYSOM 58952 ST 6/>YRS 9 DAVID DAVID SLEEP 4/> ADDL MEDICALCE [place] [address] [facility] MAXILLOFA 9 DAVID DAVID CIAL W/O CONTRAST MEDICALCE MEDICALCE MATERIAL NTER NTER DUP-SCAN 80209 [facility] XTR VEINS 9 DAVID DAVID COMPLETE MEDICALCE MEDICALCE BILATERAL NTER NTER STUDY RADIOLOGI 99332 [facility] C EXAM 8 [facility] 2 VIEWS MEDICALCE MEDICALCE FRONTAL&L NTER NTER ATERAL Encounters Encounter Start End Date Code Location Performer Type Date HOSPITAL ST - 7 7 [facility] T HEALTHCAR E EDGE OFFICE 58618 EHN JANEE EHN JANEE OUTPATIEN 5 5 T VISIT [address] NALLELY OUTPATIEN 5 5 DAVID TRO T VISIT [address] ACCESS 4 4 [facility] [place]UDETTE EMERGENCY [address] ST. 4 4 [facility] T VISIT MODERATE SEVERITY HOSPITAL ST - OTHER 4 4 [facility] CTR PUMP ASSEMBLER ST OFFICE 07389 [facility] OUTPATIEN 4 [address] [place] [facility] [address] - 3 3 DAVID OUTPATIEN CLAUDETTE T EMERGENCY [address] ST. 3 3 DAVID DEPARTMEN CLAUDETTE T VISIT MODERATE SEVERITY EMERGENCY 73875 ST HUSSEIN DEPT 3 3 DAVID VISIT MED CTR HIGH SEVERITY& THREAT [facility]UNCJ EMERGENCY [address] ST GREVER 3 3 [facility] T VISIT MODERATE SEVERITY HOSPITAL ST - 3 3 DAVID OUTPATIEN MED CTR T PUMP ASSEMBLER ST OFFICE 95719 EHN JANEE EHN JANEE OUTPATIEN 3 3 T VISIT 15 MINUTES OFFICE 34241 NALLELY NALLELY OUTPATIEN 3 3 TRO TRO T VISIT 25 MINUTES OFFICE 33626 EHN JANEE EHN JANEE OUTPATIEN 2 2 T VISIT 15 MINUTES OFFICE 99872 [facility] 2 2 H ANG H ANG T VISIT 25 MINUTES OFFICE 06037 [facility] OUT[facility]IEN 2 2 H ANG H ANG T VISIT 25 MINUTES OFFICE 56948 [facility] OUTPATIEN 2 2 H ANG H ANG T VISIT 10 MINUTES OFFICE 44453 [facility] OUTPATIEN 2 2 H ANG H ANG T VISIT 10 MINUTES OFFICE 98811 [facility] OUTPATIEN 2 2 H ANG H ANG T VISIT 25 MINUTES OFFICE 06626 [facility] OUTPATIEN 2 2 H ANG H ANG T VISIT 10 MINUTES OFFICE 24101 [facility] OUTPATIEN 2 2 H ANG H ANG T VISIT 25 MINUTES OFFICE 27870 [facility] OUTPATIEN 2 2 H ANG H ANG T VISIT 25 MINUTES OFFICE 99887 [facility] OUT[facility]IEN 2 2 H ANG H ANG T VISIT [address] - 2 2 DAVID OUTPATIEN T MEDICALCE NTER EMERGENCY 88965 [facility] DEPT 2 2 DAVID GRE VISIT FAMILY HIGH PRACTICE SEVERITY& THREAT [facility]UNCJ EMERGENCY 63652 EMERGENCY FERNBACH 2 2 CARE ALTHEA DEPARTMEN PHYS T VISIT [facility] HIGH/URGE NT SEVERITY EMERGENCY 00943 ST 1 1 DAVID DEPARTMEN FT T VISIT [facility] ST - 1 1 DAVID OUTPATIEN FT T [facility] ST - 1 1 DAVID OUTPATIEN T MEDICALCE NTER EMERGENCY 94284 DEPT 1 1 DAVID VISIT HIGH MEDICALCE SEVERITY& NTER THREAT FUN EMERGENCY 85593 EMERGENCY GAUTRAUD 1 1 CARE MATTHIEU DEPARTMEN PHYS T VISIT [facility] HIGH/URGE NT SEVERITY HOSPITAL ST - 1 1 DAVID OUTPATIEN T MEDICALCE NTER EMERGENCY [address]2685 ST 1 1 DAVID DEPARTMEN T VISIT MEDICALCE MODERATE NTER SEVERITY HOSPITAL ST - 1 1 DAVID OUTPATIEN T MEDICALCE NTER EMERGENCY 18863 ST 1 1 DAVID DEPARTMEN T VISIT MEDICALCE LOW/MODER NTER SEVERITY OFFICE 17232 [facility] OUTPATIEN 1 1 [place] T VISIT FAMILY 25 CARE, IN MINUTES HOSPITAL ST - 1 1 DAVID OUTPATIEN T MEDICALCE NTER EMERGENCY 51846 ST 1 1 DAVID DEPARTMEN T VISIT MEDICALCE MODERATE NTER SEVERITY EMERGENCY 14068 [facility] 1 1 DAVID DEPARTMEN MED CTR T VISIT MODERATE SEVERITY EMERGENCY 67964 [facility] 1 1 DAVID KASI DEPARTMEN MED CTR T VISIT MODERATE SEVERITY EMERGENCY 14145 ST 1 1 DAVID DEPARTMEN T VISIT MEDICALCE HIGH/URGE NTER NT SEVERITY HOSPITAL ST - 1 1 DAVID OUTPATIEN T MEDICALCE NTER [facility] ST - 1 1 DAVID OUTPATIEN T MEDICALCE NTER EMERGENCY 75398 ST 1 1 DAVID DEPARTMEN T VISIT MEDICALCE MODERATE NTER SEVERITY HOSPITAL ST. - 1 1 DAVID OUTPATIEN ROB T EMERGENCY 89845 ST. 1 1 DAVID DEPARTMEN ROB T VISIT MODERATE SEVERITY EMERGENCY 79885 EMERGENCY LE HIE 1 1 CARE DEPARTMEN PHYS T VISIT [facility] HIGH/URGE NT SEVERITY OFFICE 44088 [facility] OUTPATIEN 1 1 DAVID TRO T VISIT 25 PHYSICIAN MINUTES [facility] ST - OTHER 0 0 [facility] - 0 0 DAVID OUTPATIEN T MEDICALCE NTER EMERGENCY 48489 ST 0 0 DAVID DEPARTMEN T VISIT MEDICALCE MODERATE NTER SEVERITY OFFICE 68717 [facility] OUTPATIEN 0 0 [place] T VISIT FAMILY 25 CARE, IN MINUTES EMERGENCY 59194 EMERGENCY BELL 0 0 CARE SARMAD DEPARTMEN PHYS T VISIT [facility] HIGH/URGE NT SEVERITY EMERGENCY 13479 EMERGENCY HERFEL 0 0 CARE DELL DEPARTMEN PHYS T VISIT [facility] HIGH/URGE NT SEVERITY EMERGENCY 98192 EMERGENCY HERFEL DEPT 0 0 CARE FRANCIA VISIT PHYS HIGH [facility] SEVERITY& THREAT [facility] ST. - 0 0 DAVID OUTPATIEN ROB T EMERGENCY 95885 ST. 0 0 DAVID DEPARTMEN ROB T VISIT HIGH/URGE NT SEVERITY EMERGENCY 65309 ST JEN 0 0 DAVID ANT DEPARTMEN MED CTR T VISIT MODERATE SEVERITY EMERGENCY 79114 EMERGENCY RICHARDSO 0 0 CARE N THO DEPARTMEN PHYS T VISIT [facility] HIGH/URGE NT SEVERITY [facility] ST - 0 0 DAVID OUTPATIEN T MEDICALCE NTER EMERGENCY 63069 ST 0 0 DAVID DEPARTMEN T VISIT MEDICALCE MODERATE NTER SEVERITY [facility]OSPITAL ST - 0 0 DAVID OUTPATIEN T MEDICALCE NTER EMERGENCY 66997 ST 0 0 DAVID DEPARTMEN T VISIT MEDICALCE HIGH/URGE NTER NT SEVERITY EMERGENCY 31147 ST H[facility]SE[facility] 0 0 DAVID [place] DEPARTMEN MED CTR T VISIT MODERATE SEVERITY OFFICE 80707 [facility] KENNY OUTPATIEN 0 0 [place] T VISIT FAMILY 25 CARE, IN MINUTES HOSPITAL ST - 0 0 DAVID OUTPATIEN T MEDICALCE NTER EMERGENCY 18718 ST 0 0 DAVID DEPARTMEN T VISIT MEDICALCE HIGH/URGE NTER NT SEVERITY [facility]OSPITAL ST - 0 0 DAVID OUTPATIEN T MEDICALCE NTER OFFICE 21558 CHRISTINA VASQUEZ OUTPATIEN 0 0 LOIDA Ina MARISCAL A T NEW 45 MINUTES OFFICE 93950 [facility] OUTPATIEN 0 0 [place] M T VISIT FAMILY 25 CARE, MINUTES INC. EMERGENCY 70366 EMERGENCY SHER 0 0 CARE ESTER DEPARTMEN PHYS T VISIT [facility] HIGH/URGE NT SEVERITY EMERGENCY 77051 EMERGENCY EMERY, DEPT 0 0 CARE MEGHA L VISIT PHYS HIGH [facility] SEVERITY& [place] THREAT [facility] EMERGENCY 20033 ST 0 0 DAVID [facility] T VISIT MEDICALCE MODERATE NTER SEVERITY [facility]OSPITAL ST - 0 0 [facility] DAVID OUTPATIEN T MEDICALCE [facility] EMERGENCY [address]43 ST 0 0 DAVID [facility] T VISIT MEDICALCE MODERATE NTER SEVERITY EMERGENCY 50431 ST 9 [facility] 9 9 [facility] [address] EMERGENCY [address] VISIT HIGH/URGE NT SEVERITY HOSPITAL [facility] 9 9 DAVID OUTPATIEN T [facility] 9 9 DAVID OUTPATIEN T MEDICALCE [facility] OFFICE 82967 [facility] 9 9 DAVID T VISIT 5 [facility]UTES [facility] 9 9 DAVID OUTPATIEN T MEDICALCE [facility] OFFICE 41135 [facility] 9 9 DAVID T VISIT 5 [facility]ES [facility] 9 9 DAVID OUTPATIEN T MEDICALCE [facility] EMERGENCY [address] ST 9 9 DAVID [facility] VISIT MEDICALCE MODERATE NTER SEVERITY [facility] - 9 9 [facility] MEDICALCE NTER EMERGENCY 226[address] ST 9 9 DAVID [facility] VISIT MEDICALCE MODERATE NTER SEVERITY [facility] ST - 9 9 [facility]ERGENCY 97184 ST 8 8 DAVID [facility] VISIT MEDICALCE MODERATE NTER SEVERITY [facility] ST - 8 8 [facility] NT
[2017-01-13] MEDS ORDERED: METOPROLOL TAR100 MG PO (12:03)
--- OUTSIDE RECORDS SUMMARY | 2017-01-13 12:03 | External Medical Summary Rpt ---
Author Author HEATHER Chappell, [employer] Address Unknown Phone Unavailable
--- OUTSIDE RECORDS SUMMARY | 2017-01-13 12:03 | External Medical Summary Rpt | CCD ---
Demographics Preferred Language Yi Marital Status Unknown Yarsanism Affiliation Unknown Race Unknown Ethnic Group Unknown Author Author , HEATHER ROMERO Address Unknown Phone Immunization No patient found.
--- OUTSIDE RECORDS SUMMARY | 2017-01-13 12:03 | External Medical Summary Rpt | CCD ---
Demographics Preferred Language Danish Marital Status Unknown Sabianism Affiliation Unknown Race Unknown Ethnic Group Unknown Author Author , HEATHER ROMERO Address Unknown Phone Immunization No patient found.
[2017-01-13] MEDS ORDERED: ASPIRIN 81MG TA81 MG PO (12:04)
[2017-01-13] MEDS ORDERED: HUMALOG100 U/M1 SC (12:04)
[2017-01-13] MEDS ORDERED: LANTUS INS100 UNITS/ SC (12:05)
[2017-01-13] MEDS ORDERED: METFORMIN1000 MG PO (12:05)
[2017-01-13] MEDS ORDERED: LIPITOR40 MG PO (12:06)
[2017-01-13] MEDS ORDERED: LISINOPRIL HCTZ1 TAB PO (12:06)
[2017-01-13] MEDS ORDERED: IBUPROFEN800 MG PO (12:53)
--- NOTE | 2017-01-13 12:55 | Urgent Treatment Center Report ---
History of Present Issue Date/Time Seen by Provider 01/13/17 1200 Visit Reason Pt arrived:Walked Presenting Problem:PT COMPLAINS OF RT SHOULDER PAIN X 8 DAYS. STATES HE FELL ON HIS SHOULDER WAS SEEN IN [place] AT ED AND PCO. Location if Accident: Onset of symptoms date/time:/ or onset unknown for:MEDICAL HX UNKNOWN Have you (or family members/close friends) recently traveled outside the [place]? N If Yes, where/when: Have you had exposure to infectious disease within the past month? TB? Other? Specify: Patient state that he was fishing a about a week ago and landed on his right Shoulder State that he was seen in the ER and told nothing was broken and arm was placed in sling. State that pain has continued so he came in to get another xray to make sure that nothing was broken and get a second opinion and see if we could get him to somewhere to find out what is going on with his shoulder ALLERGIES Coded Allergies: cyclobenzaprine (From FLEXERIL) (Intermediate, 01/13/17) tramadol (Intermediate, 01/13/17) Home Medications Reported Medications Metoprolol Tartrate (Metoprolol 100MG) 100 MG PO BID #60 ASPIRIN (Aspirin) 81 MG PO DAILY INSULIN LISPRO (Humalog) 22 UNITS SC TID METFORMIN HCL (Metformin) 1,000 MG PO BID Insulin Glargine (Lantus Insulin Vial) 40 UNITS SC DAILY LISINOPRIL/HYDROCHLOROTHIAZIDE (Lisinopril-Hctz 20-25 MG Tab) 1 TAB PO DAILY Atorvastatin Calcium (Atorvastatin) 40 MG PO DAILY History Medical History General CAD? Yes [place]: Yes Hypertension? Yes Hyperlipidemia? Yes CHF? Yes DVT? No PE? No COPD? No Asthma? No Anemia? No GERD? No Gastric ulcers? No GI Bleed? No Thyroid Problems? No Hypothyroidism? No CVA? No Seizures? No Diabetes? Yes Insulin Dependent: Yes Insulin Pump: No Home FSBS? Yes Stones? No BPH? No GB Disease: No Nephritic Syndrome? No Asplenia? No Hepatitis? No Sickle Cell Disease? No Arthritis? No Migraines? No Cataracts? No Glaucoma? No MRSA? No HIV? No TB? No Anxiety? No Depression? No Cancer? No Site: N More? No Immunization HX DT/Tetanus Unknown Surgical Hx Previous Surgery?N Social History Smoking Hx Smoker: Current Every Day Smoker Tobacco: Yes Type Cigarettes Packs/day 1 1/2 - 2 Packs Alcohol Alcohol: No Review of Systems All Other Systems Reviewed and Negative Comment Pain in right shoulder after falling a little over a week ago while fishing and landing on right shoulder area State that pain radiates down the arm at times to his elbow area. Physical Exam Vital Signs Vital Signs Date Time Temp Pulse Resp B/P Pulse O2 O2 Flow FiO2 Ox Delivery Rate 01/13 1257 97.9 75 18 111/75 99 01/13 1201 97.9 75 18 111/75 99 General Appearance normal appearance, WD/WN, no apparent distress Respiratory Status Yes: trachea midline, chest symmetrical, non tender chest. No: respiratory distress. Cardiovascular normal exam, regular rate/rhythm Extremities Pain in right shoulder that at times radiates down to his elbow area. State muscles in back and neck area sore. Seen in Er after fall and given sling, still having pain and came to be seen for referral to Orthopedics Neurologic alert, normal exam, oriented x 3 Medical Decision Making LABS/Meds/Orders Pt receiving controlled substance in ED? No Results/Orders Orders Procedure Date/time Status [id number] VIEWS 01/13 1208 Active XRAY/CT/US XRAY/CT/US XRAY shoulder XR interpretation by reviewed by me Xray Results no fracture seen Comment Discussed with Dr Chapman Departure Departure Time of Disposition 1252 Disposition DC Home or Self Care(routine) Clinical Impression Primary Impression: Shoulder pain Qualifiers: Chronicity: unspecified Laterality: right Qualified Code: M25.511 - Pain in right shoulder Condition STABLE Referrals NALLELY,JI (Family): 2 Days-Call Office Pretty ZAVALA,Pierre HUTCHISON MD, SONA [facility] Patient Instructions DI for Shoulder Pain Additional Instructions *RICE, Rest the extremity, Ice 15-20 minutes 3-4 times daily, Compress- wear the epi wrap as discussed as much as possible to help reduce swelling and pain, Elevate the extremity when at rest *Epi wrap is for support and help control swelling, use it except in the shower. Be sure that is not to tight but not to loose either *Elevate when resting *Ibuprofen 600-800mg every 6-8 hours as needed for pain an inflammation. If need something more can take Tylenol in between doses of Ibuprofen to help Immediately follow up for new or worsening of symptoms, or no noticeable improvement over the next 3-5 days Over the counter creams like Biofreeze will help with sore muscles and muscle pains Follow up with Orhthopedics as advised As Soon as Possible REturn if needed Discharge Counseling Counseled pt/family regarding diagnosis, test results, medications/RX, home care, follow up needs Prescriptions Current Visit Scripts Ibuprofen (Ibuprofen 800MG) 800 MG PO QIDP PRN pain #30 TAB at 7341
[2017-01-13 12:57] VITALS: BP 111/75
--- NOTE | 2017-01-13 13:23 | RADIOLOGY REPORT PS360 ---
[id number] VIEWS HISTORY: FALL INJURY Patient Age: 61 years: Male Ordering Physician: CELESTE GODOY APRN TECHNIQUE: 3 views right shoulder COMPARISON :None FINDINGS . Glenohumeral joint intact. Glenoid unremarkable on these views. There is very subtle cortical offset at the superior base the humeral head where it meets the greater tuberosity. This is seen on all views. Curious feature I could not totally exclude a subtle fracture here. Discussing the patient with the nurse practitioner at [facility], understand there are rotator cuff injury pain symptoms as well. Given such would encourage MRI if there is persistent pain to further evaluate this questionable osseous feature as well as the rotator cuff AC joint is intact. Scapula unremarkable Upper right chest unremarkable. IMPRESSION: ====== 1. Curious cortical step-off is seen at the superior base the humeral head is junction with the greater tuberosity. Cannot exclude a subtle fracture here. ( Further evaluation with MRI suggested if persistent pain to evaluate this feature is well as the rotator cuff)
--- NOTE | 2017-01-13 13:23 | RADIOLOGY REPORT PS360 ---
[id number] VIEWS HISTORY: FALL INJURY Patient Age: 61 years: Male Ordering Physician: CELESTE GODOY APRN TECHNIQUE: 3 views right shoulder COMPARISON :None FINDINGS . Glenohumeral joint intact. Glenoid unremarkable on these views. There is very subtle cortical offset at the superior base the humeral head where it meets the greater tuberosity. This is seen on all views. Curious feature I could not totally exclude a subtle fracture here. Discussing the patient with the nurse practitioner at [facility], understand there are rotator cuff injury pain symptoms as well. Given such would encourage MRI if there is persistent pain to further evaluate this questionable osseous feature as well as the rotator cuff AC joint is intact. Scapula unremarkable Upper right chest unremarkable. IMPRESSION: ====== 1. Curious cortical step-off is seen at the superior base the humeral head is junction with the greater tuberosity. Cannot exclude a subtle fracture here. ( Further evaluation with MRI suggested if persistent pain to evaluate this feature is well as the rotator cuff)
== END 2017-01-13 13:00 | disposition home or self-care (01) ==
LOC: UTC 11:31 → ER 11:31 → UTC 11:48
DX: M25.511 Pain in right shoulder (principal); W01.0XXA Fall on same level from slipping, tripping and stumbling without subsequent striking against object, initial encounter; Y92.89 Other specified places as the place of occurrence of the external cause; Z88.8 Allergy status to other drugs, medicaments and biological substances; I25.10 Atherosclerotic heart disease of native coronary artery without angina pectoris; I10 Essential (primary) hypertension; Z79.4 Long term (current) use of insulin; F17.210 Nicotine dependence, cigarettes, uncomplicated